=== PATIENT | male | born 1965 | race Caucasian/White ===

== ENCOUNTER 2017-05-05 12:26 | Inpatient (IN) | payer MEDICARE, MEDICAID ==
[~2017-05-05] VITALS: Ht 180.3 cm; Wt 70.0 kg
[2017-05-05] MEDS ORDERED: DiphenhydrAMINE HCL 50 MG/ML VIAL IM ONE (12:45)
[2017-05-05] MEDS ORDERED: HALOPERIDOL LACTATE 5 MG/ML VIAL IM ONE (12:45)
[2017-05-05] MEDS ORDERED: LORazepam 2 MG/ML VIAL IM ONE (12:45)
[2017-05-05 13:48] LABS: BASOPHILS % (AUTO) 0.4 % (0.0-2.0); EOSINOPHILS % (AUTO) 0.9 % (1.0-6.0); HEMATOCRIT 35.3 % (41-53); HEMOGLOBIN 12.4 g/dL (13.5-17.5); LYMPHOCYTES # (AUTO) 1.5 K/uL (1.0-4.8); LYMPHOCYTES % (AUTO) 29.2 % (22.0-44.0); MEAN CORPUSCULAR HEMOGLOBIN 30.3 pg (26.0-34.0); MEAN CORPUSCULAR HGB CONC 35.1 G/dL (31.0-37.0); MEAN CORPUSCULAR VOLUME 86 fL (80-100); MONOCYTES # (AUTO) 0.5 K/uL (0.1-1.0); MONOCYTES % (AUTO) 9.6 % (2.0-9.0); NEUTROPHILS # (AUTO) 3.2 K/uL (1.8-7.7); NEUTROPHILS % (AUTO) 59.9 % (40.0-70.0); PLATELET COUNT (AUTO) 280 K/uL (150-450); RED BLOOD CELL COUNT(AUTO) 4.08 MIL/uL (4.50-5.90); RED CELL DISTRIBUTION WIDTH 12.9 % (11.5-14.5); WHITE BLOOD COUNT (AUTO) 5.3 K/uL (4.5-11.0)
[2017-05-05 14:10] LABS: ALANINE AMINOTRANSFERASE 179 U/L (12-78); ALBUMIN 3.1 g/dL (3.4-5.0); ANION GAP 13 mmol/L (8-16); ASPARTATE AMINOTRANSFERASE 81 U/L (15-37); BILIRUBIN,TOTAL 0.7 mg/dL (0.1-1.0); CALCIUM, TOTAL 8.4 mg/dL (8.8-10.5); CARBON DIOXIDE 21 mmol/L (22-29); CHLORIDE 97 mmol/L (98-107); CREATININE 1.29 mg/dL (0.60-1.30); GLOMERULAR FILTR. RATE CALC 58 mL/min (>60); SODIUM SERUM 131 mmol/L (136-145); UREA NITROGEN, BLOOD 19 mg/dL (7-18)
[2017-05-05] MEDS ORDERED: SODIUM CHLORIDE 0.9% 1,000 ML IV ONE (14:30)
[2017-05-05] MEDS ORDERED: INSULIN REGULAR, HUMAN 100 UNITS/ML IVP ONE (14:30)
[2017-05-05 15:02] LABS: GLUCOSE,POINT OF CARE 330 MG/DL (70-110)
[2017-05-05 15:21] LABS: GLUCOSE,POINT OF CARE 228 MG/DL (70-110)
[2017-05-05 16:17] LABS: GLUCOSE,POINT OF CARE 219 MG/DL (70-110)
[2017-05-05] MEDS ORDERED: LORazepam 2 MG TABLET PO PRN (19:15)
[2017-05-05] MEDS ORDERED: ZOLPIDEM TARTRATE 10 MG TABLET PO PRN (19:15)
[2017-05-05] MEDS ORDERED: HALOPERIDOL 5 MG TABLET PO PRN (19:15)
[2017-05-05 19:25] VITALS: BP 119/79
[2017-05-05] MEDS ORDERED: PNEUMOCOCCAL VACCINE POLYVALENT 0.5 ML VIAL [PPSV23] IM ONE (19:30)
[2017-05-05] MEDS: INSULIN ASPART 100 UNITS/ML SQ PRN (19:56)
[2017-05-05] MEDS ORDERED: GLUCAGON,HUMAN RECOMBINANT 1 MG VIAL IM PRN (20:00)
[2017-05-05 20:22] LABS: GLUCOSE,POINT OF CARE 209 MG/DL (70-110)
[2017-05-06 05:32] VITALS: BP 123/80
[2017-05-06 06:17] LABS: GLUCOSE,POINT OF CARE 173 MG/DL (70-110)
[2017-05-06] MEDS: INSULIN ASPART 100 UNITS/ML SQ PRN ×4 (06:36→21:55)
[2017-05-06 07:57] LABS: BASOPHILS % (AUTO) 0.7 % (0.0-2.0); EOSINOPHILS % (AUTO) 4.6 % (1.0-6.0); HEMATOCRIT 36.5 % (41-53); HEMOGLOBIN 12.6 g/dL (13.5-17.5); LYMPHOCYTES # (AUTO) 2.4 K/uL (1.0-4.8); MEAN CORPUSCULAR HEMOGLOBIN 30.4 pg (26.0-34.0); MEAN CORPUSCULAR HGB CONC 34.4 G/dL (31.0-37.0); MEAN CORPUSCULAR VOLUME 88 fL (80-100); MONOCYTES # (AUTO) 0.6 K/uL (0.1-1.0); MONOCYTES % (AUTO) 11.3 % (2.0-9.0); NEUTROPHILS # (AUTO) 2.1 K/uL (1.8-7.7); NEUTROPHILS % (AUTO) 39.4 % (40.0-70.0); PLATELET COUNT (AUTO) 262 K/uL (150-450); RED BLOOD CELL COUNT(AUTO) 4.12 MIL/uL (4.50-5.90); WHITE BLOOD COUNT (AUTO) 5.4 K/uL (4.5-11.0)
[2017-05-06 08:03] VITALS: BP 111/68
[2017-05-06 08:09] LABS: ALANINE AMINOTRANSFERASE 148 U/L (12-78); ALBUMIN 2.7 g/dL (3.4-5.0); ANION GAP 9 mmol/L (8-16); ASPARTATE AMINOTRANSFERASE 81 U/L (15-37); BILIRUBIN,TOTAL 0.6 mg/dL (0.1-1.0); CALCIUM, TOTAL 8.2 mg/dL (8.8-10.5); CARBON DIOXIDE 26 mmol/L (22-29); CHLORIDE 104 mmol/L (98-107); CHOL/HDL RATIO 3.4 (4.2-7.3); CREATININE 1.02 mg/dL (0.60-1.30); GLOMERULAR FILTR. RATE CALC > 60 mL/min (>60); POTASSIUM 3.8 mmol/L (3.5-5.1); SODIUM SERUM 139 mmol/L (136-145); UREA NITROGEN, BLOOD 14 mg/dL (7-18)
[2017-05-06] MEDS ORDERED: ACETAMINOPHEN 325 MG TABLET PO PRN (09:15)
[2017-05-06] MEDS ORDERED: ALBUTEROL SULFATE HFA 90 MCG/PUFF 8 GM INHALER IH PRN (09:15)
[2017-05-06] MEDS ORDERED: PETROLATUM,WHITE 71 GM JELLY TP PRN (09:15)
[2017-05-06] MEDS ORDERED: LOPERAMIDE HCL 2 MG CAPSULE PO PRN (09:15)
[2017-05-06] MEDS ORDERED: IBUPROFEN 600 MG TABLET PO PRN (09:15)
[2017-05-06] MEDS ORDERED: ONDANSETRON HCL 4 MG TABLET PO PRN (09:15)
[2017-05-06] MEDS ORDERED: BACITRACIN 28.4 GM OINTMENT TP PRN (09:15)
[2017-05-06] MEDS ORDERED: BENZOCAINE/MENTHOL LOZENGE MM PRN (09:15)
[2017-05-06] MEDS ORDERED: MAGNESIUM HYDROXIDE SUSPENSION 30 ML UDCUP PO PRN (09:15)
[2017-05-06] MEDS ORDERED: CloNIDine HCL 0.1 MG TABLET PO PRN (09:15)
[2017-05-06] MEDS ORDERED: MAG HYDROX/AL HYDROX/SIMETH ES 30 ML SUSPENSION UDCUP PO PRN (09:15)
[2017-05-06 11:42] LABS: GLUCOSE,POINT OF CARE 349 MG/DL (70-110)
[2017-05-06 16:00] VITALS: BP 116/67
[2017-05-06 16:47] LABS: GLUCOSE COMMENT 1 Received Meds; GLUCOSE,POINT OF CARE 266 MG/DL (70-110)
[2017-05-06] MEDS: RisperiDONE 1 MG TABLET PO SCH (16:52)
[2017-05-06] MEDS: MetFORMIN HCL 500 MG TABLET PO SCH (16:52)
[2017-05-06 21:57] LABS: GLUCOSE COMMENT 1 Received Meds; GLUCOSE,POINT OF CARE 181 MG/DL (70-110)
[2017-05-07 05:17] VITALS: BP 118/78
[2017-05-07] MEDS: MetFORMIN HCL 500 MG TABLET PO SCH ×2 (06:30→16:49)
[2017-05-07 06:32] LABS: GLUCOSE,POINT OF CARE 132 MG/DL (70-110)
[2017-05-07 08:20] LABS: HEMOGLOBIN A1C 11.7 % (4.5-6.2)
[2017-05-07] MEDS: RisperiDONE 1 MG TABLET PO SCH ×2 (09:04→16:49)
[2017-05-07 10:05] LABS: THYROID STIMULATING HORMONE 1.88 uIU/mL (0.36-3.74)
[2017-05-07 11:37] LABS: GLUCOSE,POINT OF CARE 330 MG/DL (70-110)
[2017-05-07] MEDS: INSULIN ASPART 100 UNITS/ML SQ PRN ×3 (11:44→21:44)
[2017-05-07 12:04] VITALS: BP 106/58
[2017-05-07 16:00] VITALS: BP 119/71
[2017-05-07 16:43] LABS: GLUCOSE COMMENT 1 Received Meds; GLUCOSE,POINT OF CARE 324 MG/DL (70-110)
[2017-05-07 21:42] LABS: GLUCOSE COMMENT 1 Received Meds; GLUCOSE,POINT OF CARE 215 MG/DL (70-110)
[2017-05-08 06:05] VITALS: BP 99/64
[2017-05-08 06:32] LABS: GLUCOSE,POINT OF CARE 232 MG/DL (70-110)
[2017-05-08] MEDS: MetFORMIN HCL 500 MG TABLET PO SCH ×2 (07:00→16:51)
[2017-05-08] MEDS: INSULIN ASPART 100 UNITS/ML SQ PRN ×4 (07:03→20:59)
[2017-05-08 08:01] VITALS: BP 113/74
[2017-05-08] MEDS: RisperiDONE 1 MG TABLET PO SCH ×2 (08:57→16:51)
[2017-05-08 12:52] LABS: GLUCOSE,POINT OF CARE 333 MG/DL (70-110)
[2017-05-08 16:00] VITALS: BP 120/69
[2017-05-08 17:42] LABS: GLUCOSE COMMENT 1 Received Meds; GLUCOSE,POINT OF CARE 252 MG/DL (70-110)
[2017-05-08 21:22] LABS: GLUCOSE COMMENT 1 Received Meds; GLUCOSE,POINT OF CARE 289 MG/DL (70-110)
[2017-05-09 06:10] VITALS: BP 109/68
[2017-05-09 06:19] LABS: HEPATITIS Bs ANTIGEN SCREEN P Negative (Negative); HEPATITIS C AB SCREEN 0.1 s/co ratio (0.0-0.9)
[2017-05-09] MEDS: MetFORMIN HCL 500 MG TABLET PO SCH (06:35)
[2017-05-09 06:42] LABS: GLUCOSE,POINT OF CARE 252 MG/DL (70-110)
[2017-05-09] MEDS: INSULIN ASPART 100 UNITS/ML SQ PRN ×2 (06:44→11:42)
[2017-05-09] MEDS: RisperiDONE 1 MG TABLET PO SCH (08:49)
[2017-05-09] MEDS ORDERED: METF500T4 PO (10:36)
[2017-05-09] MEDS ORDERED: RISP1 PO (10:36)
[2017-05-09 11:42] LABS: GLUCOSE,POINT OF CARE 260 MG/DL (70-110)
== END 2017-05-09 13:21 | disposition home or self-care (01) | DRG 897 ==
LOC: EMS 12:29 → EEVIPCON 12:29 → B3A 17:39
DX: F19.959 Other psychoactive substance use, unspecified with psychoactive substance-induced psychotic disorder, unspecified (principal); R44.2 Other hallucinations; F20.0 Paranoid schizophrenia; E11.65 Type 2 diabetes mellitus with hyperglycemia; I10 Essential (primary) hypertension; F41.9 Anxiety disorder, unspecified; J44.9 Chronic obstructive pulmonary disease, unspecified; G47.00 Insomnia, unspecified; R74.0 Nonspecific elevation of levels of transaminase and lactic acid dehydrogenase [LDH]; E83.51 Hypocalcemia; F17.200 Nicotine dependence, unspecified, uncomplicated; F10.10 Alcohol abuse, uncomplicated; Y90.9 Presence of alcohol in blood, level not specified; Z88.8 Allergy status to other drugs, medicaments and biological substances; Z71.41 Alcohol abuse counseling and surveillance of alcoholic; Z71.6 Tobacco abuse counseling; F15.90 Other stimulant use, unspecified, uncomplicated
CPT/HCPCS: 80074; 82306; 82962; 83036; 84443; 90471; 96361; 96372; 96374; 99285; G0480; J1200; J1630; J1815; J2060; J7030

== ENCOUNTER → 2019-06-17 | Outpatient (CLI) | payer MEDICARE, MEDICAID ==
[~2019-06-17] VITALS: Ht 182.9 cm; Wt 99.0 kg
[~2019-06-17] MED LIST: METF-960 PO; RISP1 PO
[2019-06-17 12:12] VITALS: BP 124/79
== END | disposition home or self-care (01) ==
LOC: HBOWC 11:01
PROVIDERS: ATTEND Internal Medicine
DX: L03.011 Cellulitis of right finger (principal); B35.1 Tinea unguium; E11.65 Type 2 diabetes mellitus with hyperglycemia; I10 Essential (primary) hypertension; G47.30 Sleep apnea, unspecified; J44.9 Chronic obstructive pulmonary disease, unspecified; F41.9 Anxiety disorder, unspecified; F20.0 Paranoid schizophrenia; F17.200 Nicotine dependence, unspecified, uncomplicated; F10.10 Alcohol abuse, uncomplicated

== ENCOUNTER 2019-12-30 18:34 | Inpatient (IN) | payer MEDICARE, MEDICAID ==
[~2019-12-30] VITALS: Ht 182.9 cm; Wt 77.8 kg
[2019-12-30] MEDS ORDERED: TRAZ-252 PO (19:05)
[2019-12-30] MEDS ORDERED: butrans patch TD (19:05)
[2019-12-30] MEDS ORDERED: DULA0.75 SQ (19:05)
[2019-12-30] MEDS ORDERED: DIVA250T45 PO (19:05)
[2019-12-30] MEDS ORDERED: ASPI-728 PO (19:05)
[2019-12-30] MEDS ORDERED: CITA10TA68 PO (19:05)
[2019-12-30] MEDS ORDERED: ATOR20TA86 PO (19:05)
[2019-12-30] MEDS ORDERED: LISI-661 PO (19:05)
[2019-12-30] MEDS ORDERED: GABA-533 PO (19:05)
[2019-12-30] MEDS ORDERED: MUPI15CR12 TP (19:05)
[2019-12-30] MEDS ORDERED: ALBU8.5H8 IH (19:05)
[2019-12-30 22:26] LABS: BASOPHILS % (AUTO) 0.6 % (0.0-2.0); EOSINOPHILS % (AUTO) 2.9 % (1.0-6.0); HEMATOCRIT 39.9 % (41-53); HEMOGLOBIN 13.5 g/dL (13.5-17.5); LYMPHOCYTES # (AUTO) 2.3 K/uL (1.0-4.8); LYMPHOCYTES % (AUTO) 29.6 % (22.0-44.0); MEAN CORPUSCULAR HEMOGLOBIN 29.8 pg (26.0-34.0); MEAN CORPUSCULAR HGB CONC 33.8 G/dL (31.0-37.0); MEAN CORPUSCULAR VOLUME 88 fL (80-100); MONOCYTES # (AUTO) 0.7 K/uL (0.1-1.0); MONOCYTES % (AUTO) 9.1 % (2.0-9.0); NEUTROPHILS # (AUTO) 4.4 K/uL (1.8-7.7); NEUTROPHILS % (AUTO) 57.8 % (40.0-70.0); PLATELET COUNT (AUTO) 250 K/uL (150-450); RED BLOOD CELL COUNT(AUTO) 4.53 MIL/uL (4.50-5.90); RED CELL DISTRIBUTION WIDTH 12.8 % (11.5-14.5)
[2019-12-30 22:36] LABS: ANION GAP 13 mmol/L (8-16); CALCIUM, TOTAL 9.5 mg/dL (8.8-10.5); CARBON DIOXIDE 22 mmol/L (22-29); CHLORIDE 99 mmol/L (98-107); CREATININE 1.19 mg/dL (0.60-1.30); GLOMERULAR FILTR. RATE CALC > 60 mL/min (>60); GLUCOSE,RANDOM 302 mg/dL (70-110); POTASSIUM 4.5 mmol/L (3.5-5.1); SODIUM SERUM 134 mmol/L (136-145); UREA NITROGEN, BLOOD 27 mg/dL (7-18)
[2019-12-30 22:45] LABS: ALANINE AMINOTRANSFERASE 21 U/L (12-78); ALBUMIN 3.4 g/dL (3.4-5.0); ALKALINE PHOSPHATASE 63 U/L (46-116); ASPARTATE AMINOTRANSFERASE 15 U/L (15-37); BILIRUBIN,TOTAL 0.4 mg/dL (0.1-1.0)
[2019-12-31] MEDS ORDERED: HALOPERIDOL 5 MG TABLET PO PRN
[2019-12-31 03:27] VITALS: BP 127/70
[2019-12-31 07:13] LABS: GLUCOMETER DEV NAME(LOC) BV2X.; GLUCOSE,POINT OF CARE 346 MG/DL (70-110)
[2019-12-31] MEDS ORDERED: GLUCAGON,HUMAN RECOMBINANT 1 MG VIAL IM PRN (08:00)
[2019-12-31] MEDS ORDERED: ALBUTEROL SULFATE HFA 90 MCG/PUFF 8 GM INHALER IH PRN (08:00)
[2019-12-31 08:22] VITALS: BP 130/71
[2019-12-31 08:40] LABS: CHOL/HDL RATIO 5.4 (4.2-7.3); CHOLESTEROL 189 mg/dL (131-200); HDL CHOLESTEROL 35 mg/dL (40-60); LDL CHOL (CALC.) 102 mg/dL (0-130); TRIGLYCERIDES 261 mg/dL (15-150)
[2019-12-31] MEDS: ATORVASTATIN CALCIUM 20 MG TABLET PO SCH (09:53)
[2019-12-31] MEDS: LISINOPRIL 10 MG TABLET PO SCH (09:53)
[2019-12-31] MEDS: ASPIRIN 81 MG CHEWABLE TABLET PO SCH (09:54)
[2019-12-31 12:10] LABS: ALANINE AMINOTRANSFERASE 22 U/L (12-78); ALBUMIN 3.1 g/dL (3.4-5.0); ALKALINE PHOSPHATASE 62 U/L (46-116); ANION GAP 12 mmol/L (8-16); ASPARTATE AMINOTRANSFERASE 13 U/L (15-37); BILIRUBIN,TOTAL 0.2 mg/dL (0.1-1.0); CARBON DIOXIDE 23 mmol/L (22-29); CHLORIDE 100 mmol/L (98-107); CREATININE 1.18 mg/dL (0.60-1.30); FREE T4 (FREE THYROXINE) 1.23 ng/dL (0.76-1.46); GLOMERULAR FILTR. RATE CALC > 60 mL/min (>60); GLUCOSE,RANDOM 376 mg/dL (70-110); POTASSIUM 4.7 mmol/L (3.5-5.1); SODIUM SERUM 135 mmol/L (136-145); THYROID STIMULATING HORMONE 1.95 uIU/mL (0.36-3.74); UREA NITROGEN, BLOOD 27 mg/dL (7-18)
[2019-12-31 12:14] LABS: HEMOGLOBIN A1C 10.1 % (3.8-5.6)
[2019-12-31 16:23] VITALS: BP 109/71
[2019-12-31 16:30] LABS: GLUCOMETER DEV NAME(LOC) BV2X.; GLUCOSE,POINT OF CARE 432 MG/DL (70-110)
[2019-12-31] MEDS: MetFORMIN HCL 500 MG TABLET PO SCH (16:32)
[2019-12-31] MEDS ORDERED: INSULIN LISPRO 100 UNITS/ML SQ ONE ×3 (18:00→20:45)
[2019-12-31 19:04] LABS: GLUCOMETER DEV NAME(LOC) BV2X.; GLUCOSE,POINT OF CARE 511 MG/DL (70-110)
[2019-12-31 20:34] LABS: GLUCOMETER DEV NAME(LOC) BV2X.; GLUCOSE,POINT OF CARE 316 MG/DL (70-110)
[2019-12-31] MEDS ORDERED: TraZODone HCL 50 MG TABLET PO ONE (21:45)
[2019-12-31 22:18] LABS: GLUCOMETER DEV NAME(LOC) BV2X.; GLUCOSE,POINT OF CARE 144 MG/DL (70-110)
[2020-01-01 00:44] LABS: GLUCOMETER DEV NAME(LOC) BV2X.; GLUCOSE,POINT OF CARE 64 MG/DL (70-110)
[2020-01-01 05:48] LABS: GLUCOMETER DEV NAME(LOC) BV2X.; GLUCOSE,POINT OF CARE 211 MG/DL (70-110)
[2020-01-01] MEDS: MetFORMIN HCL 500 MG TABLET PO SCH ×2 (06:53→16:36)
[2020-01-01] MEDS: INSULIN LISPRO 100 UNITS/ML SQ PRN ×2 (07:06→11:29)
[2020-01-01 08:34] VITALS: BP 109/66
[2020-01-01] MEDS: DIVALPROEX SODIUM 500 MG ER TABLET PO SCH ×2 (09:15→16:36)
[2020-01-01] MEDS: RisperiDONE 1 MG TABLET PO SCH ×2 (09:16→16:36)
[2020-01-01] MEDS: ASPIRIN 81 MG CHEWABLE TABLET PO SCH (09:16)
[2020-01-01] MEDS: ATORVASTATIN CALCIUM 20 MG TABLET PO SCH (09:16)
[2020-01-01] MEDS: CITALOPRAM HYDROBROMIDE 20 MG TABLET PO SCH (09:17)
[2020-01-01] MEDS: LISINOPRIL 10 MG TABLET PO SCH (09:17)
[2020-01-01] MEDS: GABAPENTIN 400 MG CAPSULE PO SCH ×3 (09:17→16:36)
[2020-01-01 16:36] VITALS: BP 128/74
[2020-01-01 17:18] LABS: GLUCOMETER DEV NAME(LOC) BV2X.; GLUCOSE,POINT OF CARE 426 MG/DL (70-110)
[2020-01-01] MEDS ORDERED: INSULIN LISPRO 100 UNITS/ML SQ ONE ×2 (18:15→21:00)
[2020-01-01] MEDS ORDERED: CITA-106 PO (18:18)
[2020-01-01] MEDS ORDERED: BUPR1PAT3 TD (18:18)
[2020-01-01] MEDS ORDERED: DIVA500T52 PO (18:18)
[2020-01-01] MEDS: TraZODone HCL 50 MG TABLET PO SCH (20:19)
[2020-01-01 20:40] LABS: GLUCOMETER DEV NAME(LOC) BV2X.; GLUCOSE,POINT OF CARE 428 MG/DL (70-110)
[2020-01-01 23:05] LABS: GLUCOMETER DEV NAME(LOC) BV2X.; GLUCOSE,POINT OF CARE 253 MG/DL (70-110)
[2020-01-02] VITALS (9 sets, daily range): BP systolic 74–132; BP diastolic 36–88
[2020-01-02 05:47] LABS: GLUCOMETER DEV NAME(LOC) BV2X.; GLUCOSE,POINT OF CARE 171 MG/DL (70-110)
[2020-01-02] MEDS: MetFORMIN HCL 500 MG TABLET PO SCH ×2 (06:23→16:33)
[2020-01-02] MEDS: INSULIN GLARGINE,HUM.REC.ANLOG 100 UNITS/ML SQ SCH ×2 (06:29→20:46)
[2020-01-02] MEDS: INSULIN LISPRO 100 UNITS/ML SQ PRN ×4 (06:30→20:46)
[2020-01-02] MEDS: DIVALPROEX SODIUM 500 MG ER TABLET PO SCH ×2 (08:33→16:33)
[2020-01-02] MEDS: GABAPENTIN 400 MG CAPSULE PO SCH ×3 (08:33→16:33)
[2020-01-02] MEDS: CITALOPRAM HYDROBROMIDE 20 MG TABLET PO SCH (08:33)
[2020-01-02] MEDS: RisperiDONE 1 MG TABLET PO SCH ×2 (08:33→16:33)
[2020-01-02] MEDS: ASPIRIN 81 MG CHEWABLE TABLET PO SCH (08:33)
[2020-01-02] MEDS: LISINOPRIL 10 MG TABLET PO SCH (08:33)
[2020-01-02] MEDS: ATORVASTATIN CALCIUM 20 MG TABLET PO SCH (08:33)
[2020-01-02 11:39] LABS: GLUCOMETER DEV NAME(LOC) BV2X.; GLUCOSE,POINT OF CARE 396 MG/DL (70-110)
[2020-01-02 16:38] LABS: GLUCOMETER DEV NAME(LOC) BV2X.; GLUCOSE,POINT OF CARE 270 MG/DL (70-110)
[2020-01-02 20:27] LABS: GLUCOMETER DEV NAME(LOC) BV2X.; GLUCOSE,POINT OF CARE 233 MG/DL (70-110)
[2020-01-02] MEDS: TraZODone HCL 50 MG TABLET PO SCH (20:35)
[2020-01-03 00:08] VITALS: BP 117/68
[2020-01-03] MEDS: MetFORMIN HCL 500 MG TABLET PO SCH ×2 (06:45→16:37)
[2020-01-03 06:47] LABS: GLUCOMETER DEV NAME(LOC) BV2X.; GLUCOSE,POINT OF CARE 327 MG/DL (70-110)
[2020-01-03] MEDS: INSULIN LISPRO 100 UNITS/ML SQ PRN ×4 (06:47→20:54)
[2020-01-03] MEDS: LISINOPRIL 10 MG TABLET PO SCH (09:00)
[2020-01-03 09:23] VITALS: BP 109/65
[2020-01-03] MEDS: RisperiDONE 1 MG TABLET PO SCH ×2 (10:00→16:37)
[2020-01-03] MEDS: DIVALPROEX SODIUM 500 MG ER TABLET PO SCH ×2 (10:00→16:37)
[2020-01-03] MEDS: ASPIRIN 81 MG CHEWABLE TABLET PO SCH (10:00)
[2020-01-03] MEDS: CITALOPRAM HYDROBROMIDE 20 MG TABLET PO SCH (10:00)
[2020-01-03] MEDS: ATORVASTATIN CALCIUM 20 MG TABLET PO SCH (10:00)
[2020-01-03] MEDS: GABAPENTIN 400 MG CAPSULE PO SCH ×3 (10:00→16:37)
[2020-01-03 10:20] LABS: GLUCOMETER DEV NAME(LOC) BV2X.; GLUCOSE,POINT OF CARE 334 MG/DL (70-110)
[2020-01-03] MEDS: INSULIN GLARGINE,HUM.REC.ANLOG 100 UNITS/ML SQ SCH ×2 (10:22→20:54)
[2020-01-03 11:47] LABS: GLUCOMETER DEV NAME(LOC) BV2X.; GLUCOSE,POINT OF CARE 351 MG/DL (70-110)
[2020-01-03 16:04] VITALS: BP 104/63
[2020-01-03 16:41] LABS: GLUCOMETER DEV NAME(LOC) BV2X.; GLUCOSE,POINT OF CARE 258 MG/DL (70-110)
[2020-01-03] MEDS: TraZODone HCL 50 MG TABLET PO SCH (20:29)
[2020-01-03 20:35] LABS: GLUCOMETER DEV NAME(LOC) BV2X.; GLUCOSE,POINT OF CARE 261 MG/DL (70-110)
[2020-01-04 01:42] VITALS: BP 98/58
[2020-01-04 06:18] LABS: GLUCOMETER DEV NAME(LOC) BV2X.; GLUCOSE,POINT OF CARE 231 MG/DL (70-110)
[2020-01-04] MEDS: MetFORMIN HCL 500 MG TABLET PO SCH ×2 (06:43→16:53)
[2020-01-04] MEDS: INSULIN LISPRO 100 UNITS/ML SQ PRN ×4 (06:45→20:57)
[2020-01-04 08:04] VITALS: BP 113/65
[2020-01-04] MEDS: RisperiDONE 1 MG TABLET PO SCH ×2 (09:08→16:53)
[2020-01-04] MEDS: LISINOPRIL 10 MG TABLET PO SCH (09:08)
[2020-01-04] MEDS: DIVALPROEX SODIUM 500 MG ER TABLET PO SCH ×2 (09:08→16:53)
[2020-01-04] MEDS: ATORVASTATIN CALCIUM 20 MG TABLET PO SCH (09:08)
[2020-01-04] MEDS: GABAPENTIN 400 MG CAPSULE PO SCH ×3 (09:09→16:53)
[2020-01-04] MEDS: CITALOPRAM HYDROBROMIDE 20 MG TABLET PO SCH (09:09)
[2020-01-04] MEDS: ASPIRIN 81 MG CHEWABLE TABLET PO SCH (09:09)
[2020-01-04] MEDS: INSULIN GLARGINE,HUM.REC.ANLOG 100 UNITS/ML SQ SCH ×2 (09:35→20:57)
[2020-01-04 11:41] LABS: GLUCOMETER DEV NAME(LOC) BV2X.; GLUCOSE,POINT OF CARE 245 MG/DL (70-110)
[2020-01-04 16:18] VITALS: BP 118/74
[2020-01-04 17:01] LABS: GLUCOMETER DEV NAME(LOC) BV2X.; GLUCOSE,POINT OF CARE 236 MG/DL (70-110)
[2020-01-04] MEDS: TraZODone HCL 50 MG TABLET PO SCH (20:49)
[2020-01-04 20:58] LABS: GLUCOMETER DEV NAME(LOC) BV2X.; GLUCOSE,POINT OF CARE 217 MG/DL (70-110)
[2020-01-05 00:30] VITALS: BP 101/59
[2020-01-05] MEDS: LORazepam 2 MG TABLET PO PRN (02:56)
[2020-01-05] MEDS: ZOLPIDEM TARTRATE 10 MG TABLET PO PRN (02:56)
[2020-01-05 06:15] LABS: GLUCOMETER DEV NAME(LOC) BV2X.; GLUCOSE,POINT OF CARE 153 MG/DL (70-110)
[2020-01-05] MEDS: MetFORMIN HCL 500 MG TABLET PO SCH ×2 (06:53→16:21)
[2020-01-05] MEDS: INSULIN LISPRO 100 UNITS/ML SQ PRN ×3 (07:04→20:44)
[2020-01-05] MEDS: ATORVASTATIN CALCIUM 20 MG TABLET PO SCH (08:59)
[2020-01-05] MEDS: LISINOPRIL 10 MG TABLET PO SCH (08:59)
[2020-01-05] MEDS: GABAPENTIN 400 MG CAPSULE PO SCH ×3 (08:59→16:22)
[2020-01-05] MEDS: RisperiDONE 1 MG TABLET PO SCH ×2 (08:59→16:21)
[2020-01-05] MEDS: DIVALPROEX SODIUM 500 MG ER TABLET PO SCH ×3 (09:00→16:25)
[2020-01-05] MEDS: CITALOPRAM HYDROBROMIDE 20 MG TABLET PO SCH (09:00)
[2020-01-05] MEDS: ASPIRIN 81 MG CHEWABLE TABLET PO SCH (09:00)
[2020-01-05] MEDS: OMEGA-3/DHA/EPA/FISH OIL 1,000 MG CAPSULE PO SCH (09:00)
[2020-01-05] MEDS: INSULIN GLARGINE,HUM.REC.ANLOG 100 UNITS/ML SQ SCH ×2 (09:15→20:44)
[2020-01-05 11:19] LABS: GLUCOMETER DEV NAME(LOC) BV2X.; GLUCOSE,POINT OF CARE 117 MG/DL (70-110)
[2020-01-05 16:16] VITALS: BP 107/60
[2020-01-05 16:37] LABS: GLUCOMETER DEV NAME(LOC) BV2X.; GLUCOSE,POINT OF CARE 155 MG/DL (70-110)
[2020-01-05 20:41] LABS: GLUCOMETER DEV NAME(LOC) BV2X.; GLUCOSE,POINT OF CARE 214 MG/DL (70-110)
[2020-01-05] MEDS: TraZODone HCL 50 MG TABLET PO SCH (20:41)
[2020-01-06 02:31] VITALS: BP 111/63
[2020-01-06] MEDS: ZOLPIDEM TARTRATE 10 MG TABLET PO PRN (02:39)
[2020-01-06] MEDS: MetFORMIN HCL 500 MG TABLET PO SCH ×2 (06:12→16:34)
[2020-01-06] MEDS: INSULIN LISPRO 100 UNITS/ML SQ PRN ×4 (06:19→20:48)
[2020-01-06 06:32] LABS: GLUCOMETER DEV NAME(LOC) BV2X.; GLUCOSE,POINT OF CARE 121 MG/DL (70-110)
[2020-01-06 08:23] VITALS: BP 108/66
[2020-01-06] MEDS: GABAPENTIN 400 MG CAPSULE PO SCH ×3 (08:53→16:34)
[2020-01-06] MEDS: CITALOPRAM HYDROBROMIDE 20 MG TABLET PO SCH (08:53)
[2020-01-06] MEDS: ASPIRIN 81 MG CHEWABLE TABLET PO SCH (08:53)
[2020-01-06] MEDS: ATORVASTATIN CALCIUM 20 MG TABLET PO SCH (08:53)
[2020-01-06] MEDS: LISINOPRIL 10 MG TABLET PO SCH (08:53)
[2020-01-06] MEDS: RisperiDONE 1 MG TABLET PO SCH ×2 (08:53→16:34)
[2020-01-06] MEDS: DIVALPROEX SODIUM 500 MG ER TABLET PO SCH ×2 (08:53→16:33)
[2020-01-06] MEDS: INSULIN GLARGINE,HUM.REC.ANLOG 100 UNITS/ML SQ SCH ×2 (09:04→20:48)
[2020-01-06] MEDS: OMEGA-3/DHA/EPA/FISH OIL 1,000 MG CAPSULE PO SCH (09:05)
[2020-01-06 11:22] LABS: GLUCOMETER DEV NAME(LOC) BV2X.; GLUCOSE,POINT OF CARE 183 MG/DL (70-110)
[2020-01-06 16:25] VITALS: BP 108/63
[2020-01-06 16:33] LABS: GLUCOMETER DEV NAME(LOC) BV2X.; GLUCOSE,POINT OF CARE 263 MG/DL (70-110)
[2020-01-06] MEDS: TraZODone HCL 50 MG TABLET PO SCH (20:30)
[2020-01-06 20:57] LABS: GLUCOMETER DEV NAME(LOC) BV2X.; GLUCOSE,POINT OF CARE 146 MG/DL (70-110)
[2020-01-07 00:24] VITALS: BP 101/65
[2020-01-07] MEDS: ZOLPIDEM TARTRATE 10 MG TABLET PO PRN (01:02)
[2020-01-07 06:45] LABS: GLUCOMETER DEV NAME(LOC) BV2X.; GLUCOSE,POINT OF CARE 145 MG/DL (70-110)
[2020-01-07] MEDS: MetFORMIN HCL 500 MG TABLET PO SCH ×2 (06:46→16:42)
[2020-01-07] MEDS: LORazepam 2 MG TABLET PO PRN (06:46)
[2020-01-07 06:48] VITALS: BP 105/58
[2020-01-07] MEDS: INSULIN LISPRO 100 UNITS/ML SQ PRN ×4 (07:07→20:37)
[2020-01-07 08:06] VITALS: BP 111/73
[2020-01-07] MEDS: OMEGA-3/DHA/EPA/FISH OIL 1,000 MG CAPSULE PO SCH (08:40)
[2020-01-07] MEDS: DIVALPROEX SODIUM 500 MG ER TABLET PO SCH ×2 (08:40→16:42)
[2020-01-07] MEDS: ATORVASTATIN CALCIUM 20 MG TABLET PO SCH (08:41)
[2020-01-07] MEDS: RisperiDONE 1 MG TABLET PO SCH ×2 (08:41→16:42)
[2020-01-07] MEDS: CITALOPRAM HYDROBROMIDE 20 MG TABLET PO SCH (08:41)
[2020-01-07] MEDS: LISINOPRIL 10 MG TABLET PO SCH (08:41)
[2020-01-07] MEDS: ASPIRIN 81 MG CHEWABLE TABLET PO SCH (08:41)
[2020-01-07] MEDS: GABAPENTIN 400 MG CAPSULE PO SCH ×3 (08:41→16:43)
[2020-01-07] MEDS: INSULIN GLARGINE,HUM.REC.ANLOG 100 UNITS/ML SQ SCH ×2 (08:56→20:36)
[2020-01-07 10:59] LABS: GLUCOMETER DEV NAME(LOC) BV2X.; GLUCOSE,POINT OF CARE 188 MG/DL (70-110)
[2020-01-07 16:37] VITALS: BP 102/61
[2020-01-07 16:53] LABS: GLUCOMETER DEV NAME(LOC) BV2X.; GLUCOSE,POINT OF CARE 170 MG/DL (70-110)
[2020-01-07] MEDS: LOPERAMIDE HCL 2 MG CAPSULE PO PRN (19:26)
[2020-01-07] MEDS: TraZODone HCL 50 MG TABLET PO SCH (20:32)
[2020-01-07 20:34] LABS: GLUCOMETER DEV NAME(LOC) BV2X.; GLUCOSE,POINT OF CARE 230 MG/DL (70-110)
[2020-01-08 00:29] VITALS: BP 129/77
[2020-01-08] MEDS: LOPERAMIDE HCL 2 MG CAPSULE PO PRN ×3 (04:21→20:36)
[2020-01-08 05:33] LABS: GLUCOMETER DEV NAME(LOC) BV2X.; GLUCOSE,POINT OF CARE 139 MG/DL (70-110)
[2020-01-08] MEDS: INSULIN LISPRO 100 UNITS/ML SQ PRN ×4 (07:10→21:13)
[2020-01-08] MEDS: MetFORMIN HCL 500 MG TABLET PO SCH ×2 (07:12→16:40)
[2020-01-08 08:08] VITALS: BP 119/75
[2020-01-08] MEDS: CITALOPRAM HYDROBROMIDE 20 MG TABLET PO SCH (09:20)
[2020-01-08] MEDS: DIVALPROEX SODIUM 500 MG ER TABLET PO SCH ×2 (09:20→16:40)
[2020-01-08] MEDS: LISINOPRIL 10 MG TABLET PO SCH (09:21)
[2020-01-08] MEDS: ATORVASTATIN CALCIUM 20 MG TABLET PO SCH (09:21)
[2020-01-08] MEDS: RisperiDONE 1 MG TABLET PO SCH ×2 (09:21→16:40)
[2020-01-08] MEDS: ASPIRIN 81 MG CHEWABLE TABLET PO SCH (09:21)
[2020-01-08] MEDS: OMEGA-3/DHA/EPA/FISH OIL 1,000 MG CAPSULE PO SCH (09:21)
[2020-01-08] MEDS: GABAPENTIN 400 MG CAPSULE PO SCH ×3 (09:21→16:40)
[2020-01-08] MEDS: INSULIN GLARGINE,HUM.REC.ANLOG 100 UNITS/ML SQ SCH ×2 (10:36→21:14)
[2020-01-08 11:44] LABS: GLUCOMETER DEV NAME(LOC) BV2X.; GLUCOSE,POINT OF CARE 184 MG/DL (70-110)
[2020-01-08 16:18] VITALS: BP 116/68
[2020-01-08 16:59] LABS: GLUCOMETER DEV NAME(LOC) BV2X.; GLUCOSE,POINT OF CARE 134 MG/DL (70-110)
[2020-01-08] MEDS: TraZODone HCL 50 MG TABLET PO SCH (20:36)
[2020-01-08 20:46] LABS: GLUCOMETER DEV NAME(LOC) BV2X.; GLUCOSE,POINT OF CARE 190 MG/DL (70-110)
[2020-01-09 00:35] VITALS: BP 108/54
[2020-01-09] MEDS: MetFORMIN HCL 500 MG TABLET PO SCH ×2 (07:06→17:20)
[2020-01-09 07:14] LABS: GLUCOMETER DEV NAME(LOC) BV2X.; GLUCOSE,POINT OF CARE 71 MG/DL (70-110)
[2020-01-09 07:14] LABS: GLUCOMETER DEV NAME(LOC) BV2X.; GLUCOSE,POINT OF CARE 50 MG/DL (70-110)
[2020-01-09 07:14] LABS: GLUCOMETER DEV NAME(LOC) BV2X.; GLUCOSE,POINT OF CARE 63 MG/DL (70-110)
[2020-01-09 08:45] VITALS: BP 128/75
[2020-01-09 08:47] VITALS: BP 107/55
[2020-01-09] MEDS: DIVALPROEX SODIUM 500 MG ER TABLET PO SCH ×2 (08:47→17:20)
[2020-01-09] MEDS: CITALOPRAM HYDROBROMIDE 20 MG TABLET PO SCH (08:48)
[2020-01-09] MEDS: RisperiDONE 1 MG TABLET PO SCH ×2 (08:48→17:20)
[2020-01-09] MEDS: GABAPENTIN 400 MG CAPSULE PO SCH ×3 (08:48→17:20)
[2020-01-09] MEDS: ATORVASTATIN CALCIUM 20 MG TABLET PO SCH (08:48)
[2020-01-09] MEDS: OMEGA-3/DHA/EPA/FISH OIL 1,000 MG CAPSULE PO SCH (08:48)
[2020-01-09] MEDS: ASPIRIN 81 MG CHEWABLE TABLET PO SCH (08:48)
[2020-01-09] MEDS: LISINOPRIL 10 MG TABLET PO SCH (08:48)
[2020-01-09] MEDS: INSULIN GLARGINE,HUM.REC.ANLOG 100 UNITS/ML SQ SCH ×2 (09:55→20:53)
[2020-01-09 10:02] LABS: GLUCOMETER DEV NAME(LOC) BV2X.; GLUCOSE,POINT OF CARE 259 MG/DL (70-110)
[2020-01-09 11:17] LABS: GLUCOMETER DEV NAME(LOC) BV2X.; GLUCOSE,POINT OF CARE 259 MG/DL (70-110)
[2020-01-09] MEDS: INSULIN LISPRO 100 UNITS/ML SQ PRN ×3 (11:47→20:52)
[2020-01-09] MEDS: LORazepam 2 MG TABLET PO PRN (13:20)
[2020-01-09 16:05] VITALS: BP 112/70
[2020-01-09 16:44] LABS: GLUCOMETER DEV NAME(LOC) BV2X.; GLUCOSE,POINT OF CARE 171 MG/DL (70-110)
[2020-01-09 20:48] LABS: GLUCOMETER DEV NAME(LOC) BV2X.; GLUCOSE,POINT OF CARE 150 MG/DL (70-110)
[2020-01-09] MEDS: TraZODone HCL 50 MG TABLET PO SCH (21:00)
[2020-01-10 04:19] VITALS: BP 110/67
[2020-01-10] MEDS: LORazepam 2 MG TABLET PO PRN (04:23)
[2020-01-10] MEDS: MetFORMIN HCL 500 MG TABLET PO SCH ×2 (06:57→16:52)
[2020-01-10 07:01] LABS: GLUCOMETER DEV NAME(LOC) BV2X.; GLUCOSE,POINT OF CARE 162 MG/DL (70-110)
[2020-01-10] MEDS: INSULIN LISPRO 100 UNITS/ML SQ PRN ×3 (07:06→20:58)
[2020-01-10 08:11] VITALS: BP 112/75
[2020-01-10] MEDS: ASPIRIN 81 MG CHEWABLE TABLET PO SCH (09:11)
[2020-01-10] MEDS: GABAPENTIN 400 MG CAPSULE PO SCH ×3 (09:11→16:12)
[2020-01-10] MEDS: DIVALPROEX SODIUM 500 MG ER TABLET PO SCH ×2 (09:12→16:12)
[2020-01-10] MEDS: CITALOPRAM HYDROBROMIDE 20 MG TABLET PO SCH (09:12)
[2020-01-10] MEDS: ATORVASTATIN CALCIUM 20 MG TABLET PO SCH (09:12)
[2020-01-10] MEDS: RisperiDONE 1 MG TABLET PO SCH ×2 (09:12→16:12)
[2020-01-10] MEDS: OMEGA-3/DHA/EPA/FISH OIL 1,000 MG CAPSULE PO SCH (09:12)
[2020-01-10] MEDS: LISINOPRIL 10 MG TABLET PO SCH (09:12)
[2020-01-10] MEDS: INSULIN GLARGINE,HUM.REC.ANLOG 100 UNITS/ML SQ SCH ×2 (09:18→20:59)
[2020-01-10 09:51] LABS: GLUCOMETER DEV NAME(LOC) BV2X.; GLUCOSE,POINT OF CARE 208 MG/DL (70-110)
[2020-01-10 11:43] LABS: GLUCOMETER DEV NAME(LOC) BV2X.; GLUCOSE,POINT OF CARE 93 MG/DL (70-110)
[2020-01-10 16:06] VITALS: BP 108/67
[2020-01-10 16:38] LABS: GLUCOMETER DEV NAME(LOC) BV2X.; GLUCOSE,POINT OF CARE 102 MG/DL (70-110)
[2020-01-10] MEDS: TraZODone HCL 50 MG TABLET PO SCH (20:21)
[2020-01-10 20:22] LABS: GLUCOMETER DEV NAME(LOC) BV2X.; GLUCOSE,POINT OF CARE 175 MG/DL (70-110)
[2020-01-11 02:34] VITALS: BP 129/74
[2020-01-11 05:21] LABS: GLUCOMETER DEV NAME(LOC) BV2X.; GLUCOSE,POINT OF CARE 121 MG/DL (70-110)
[2020-01-11] MEDS: MetFORMIN HCL 500 MG TABLET PO SCH (06:04)
[2020-01-11] MEDS: INSULIN LISPRO 100 UNITS/ML SQ PRN ×2 (06:29→11:18)
[2020-01-11] MEDS: CITALOPRAM HYDROBROMIDE 20 MG TABLET PO SCH (08:17)
[2020-01-11] MEDS: ATORVASTATIN CALCIUM 20 MG TABLET PO SCH (08:18)
[2020-01-11] MEDS: RisperiDONE 1 MG TABLET PO SCH (08:18)
[2020-01-11] MEDS: DIVALPROEX SODIUM 500 MG ER TABLET PO SCH (08:18)
[2020-01-11] MEDS: GABAPENTIN 400 MG CAPSULE PO SCH ×2 (08:18→13:42)
[2020-01-11] MEDS: OMEGA-3/DHA/EPA/FISH OIL 1,000 MG CAPSULE PO SCH (08:18)
[2020-01-11] MEDS: LISINOPRIL 10 MG TABLET PO SCH (08:18)
[2020-01-11] MEDS: ASPIRIN 81 MG CHEWABLE TABLET PO SCH (08:18)
[2020-01-11] MEDS: LOPERAMIDE HCL 2 MG CAPSULE PO PRN (08:23)
[2020-01-11] MEDS: LORazepam 2 MG TABLET PO PRN (08:24)
[2020-01-11 08:32] VITALS: BP 134/70
[2020-01-11] MEDS: INSULIN GLARGINE,HUM.REC.ANLOG 100 UNITS/ML SQ SCH (10:29)
[2020-01-11 11:19] LABS: GLUCOMETER DEV NAME(LOC) BV2X.; GLUCOSE,POINT OF CARE 178 MG/DL (70-110)
== END 2020-01-11 13:30 | disposition home or self-care (01) | DRG 885 ==
LOC: EMS 18:34 → B2X 12-31 00:30
PROVIDERS: ADMIT Psychiatry & Neurology Psychiatry; ATTEND Psychiatry & Neurology Psychiatry
DX: F25.0 Schizoaffective disorder, bipolar type (principal); E11.65 Type 2 diabetes mellitus with hyperglycemia; R45.851 Suicidal ideations; I10 Essential (primary) hypertension; G89.29 Other chronic pain; J44.9 Chronic obstructive pulmonary disease, unspecified; F41.9 Anxiety disorder, unspecified; K25.9 Gastric ulcer, unspecified as acute or chronic, without hemorrhage or perforation; G47.00 Insomnia, unspecified; K59.00 Constipation, unspecified; N28.9 Disorder of kidney and ureter, unspecified; Z88.8 Allergy status to other drugs, medicaments and biological substances; Z87.11 Personal history of peptic ulcer disease
CPT/HCPCS: 83036; 84439; 84443; 87045; G0480; J1815

== ENCOUNTER 2020-02-02 14:40 | Emergency (ER) | payer MEDICARE, OTHER ==
[~2020-02-02] VITALS: Ht 182.9 cm; Wt 79.5 kg
[~2020-02-02 14:40] MED LIST changes: +ASPI-728 PO; +ATOR20TA86 PO; +CITA-106 PO; +DIVA500T52 PO; +GABA-533 PO; +LISI-661 PO; +TRAZ-252 PO
[2020-02-02 15:24] VITALS: BP 124/74
== END 2020-02-02 16:21 | disposition home or self-care (01) ==
LOC: EMS 14:46
DX: S01.81XD Laceration without foreign body of other part of head, subsequent encounter (principal); E11.9 Type 2 diabetes mellitus without complications; F31.9 Bipolar disorder, unspecified; F20.9 Schizophrenia, unspecified; I10 Essential (primary) hypertension; Z79.84 Long term (current) use of oral hypoglycemic drugs; Z79.82 Long term (current) use of aspirin; Z79.899 Other long term (current) drug therapy; Z88.8 Allergy status to other drugs, medicaments and biological substances; X58.XXXD Exposure to other specified factors, subsequent encounter

== ENCOUNTER 2020-04-01 16:24 | Emergency (ER) | payer MEDICARE, OTHER ==
[~2020-04-01] VITALS: Ht 182.9 cm; Wt 79.5 kg
[~2020-04-01 16:24] MED LIST changes: -CITA-106 PO; +CITA-144 PO; +DIVA-80 PO; -DIVA500T52 PO; +GABA-1201 PO; -GABA-533 PO; -RISP1 PO; +RISP1TAB27 PO
[2020-04-01 17:31] LABS: GLUCOSE,POINT OF CARE 355 MG/DL (70-110)
[2020-04-01 18:03] LABS: BASOPHILS % (AUTO) 0.4 % (0.0-2.0); EOSINOPHILS % (AUTO) 1.6 % (1.0-6.0); HEMATOCRIT 32.7 % (41-53); HEMOGLOBIN 11.1 g/dL (13.5-17.5); LYMPHOCYTES % (AUTO) 27.2 % (22.0-44.0); MEAN CORPUSCULAR HEMOGLOBIN 29.8 pg (26.0-34.0); MEAN CORPUSCULAR HGB CONC 33.9 G/dL (31.0-37.0); MEAN CORPUSCULAR VOLUME 88 fL (80-100); MONOCYTES # (AUTO) 0.7 K/uL (0.1-1.0); MONOCYTES % (AUTO) 9.5 % (2.0-9.0); NEUTROPHILS # (AUTO) 4.4 K/uL (1.8-7.7); NEUTROPHILS % (AUTO) 61.3 % (40.0-70.0); PLATELET COUNT (AUTO) 309 K/uL (150-450); RED BLOOD CELL COUNT(AUTO) 3.72 MIL/uL (4.50-5.90); RED CELL DISTRIBUTION WIDTH 13.4 % (11.5-14.5)
[2020-04-01 18:20] LABS: LACTIC ACID 0.8 mmol/L (0.4-2.0)
[2020-04-01 18:26] LABS: ANION GAP 7 mmol/L (8-16); CALCIUM, TOTAL 9.1 mg/dL (8.8-10.5); CARBON DIOXIDE 26 mmol/L (22-29); CHLORIDE 99 mmol/L (98-107); GLOMERULAR FILTR. RATE CALC > 60 mL/min (>60); GLUCOSE,RANDOM 358 mg/dL (70-110); POTASSIUM 4.2 mmol/L (3.5-5.1); SODIUM SERUM 132 mmol/L (136-145); TROPONIN I < 0.02 ng/mL (0.00-0.05); UREA NITROGEN, BLOOD 25 mg/dL (7-18)
[2020-04-01 18:33] LABS: AMMONIA < 10 umol/L (11-32)
[2020-04-01 18:41] LABS: ALANINE AMINOTRANSFERASE 20 U/L (12-78); ALBUMIN 3.4 g/dL (3.4-5.0); ALKALINE PHOSPHATASE 91 U/L (46-116); ASPARTATE AMINOTRANSFERASE 12 U/L (15-37); BILIRUBIN,TOTAL 0.5 mg/dL (0.1-1.0); TOTAL PROTEIN, SERUM 8.6 g/dL (6.4-8.2)
[2020-04-01 18:44] LABS: AMPHET/METH SCREEN,URINE POSITIVE (NEGATIVE); BARBITURATE SCREEN, URINE NEGATIVE (NEGATIVE); BENZODIAZEPINES SCREEN,URINE NEGATIVE (NEGATIVE); CANNABINOID SCREEN,URINE NEGATIVE (NEGATIVE); COCAINE SCREEN,URINE NEGATIVE (NEGATIVE); METHADONE SCREEN, URINE NEGATIVE (NEGATIVE); OPIATE SCREEN,URINE NEGATIVE (NEGATIVE)
[2020-04-01 18:47] LABS: APPEARANCE,URINE CLEAR (CLEAR); BILIRUBIN,URINE NEGATIVE (NEGATIVE); GLUCOSE, URINE (UA) >=1000 mg/dL (NEGATIVE); KETONES,URINE TRACE mg/dL (NEGATIVE); LEUKOCYTE ESTERASE ,URINE NEGATIVE (NEGATIVE); NITRATE,URINE NEGATIVE (NEGATIVE); OCCULT BLOOD,URINE TRACE (NEGATIVE); PH,URINE 5.5 (5.0-8.0); PROTEIN,URINE SEE CONFIRM (NEGATIVE); UROBILINOGEN,URINE 0.2 mg/dL (<=1.0)
[2020-04-01 18:55] LABS: PHENCYCLIDINE SCREEN,URINE NEGATIVE (NEGATIVE)
[2020-04-01 19:03] LABS: VALPROIC ACID < 3 mcg/mL (50-100)
[2020-04-01 19:25] LABS: SULFOSALICYLIC ACID,URINE 3+ (Negative)
[2020-04-01 19:26] LABS: BACTERIA,URINE None Seen /HPF (None Seen)
[2020-04-01 19:27] LABS: RBC,URINE 0-2 /HPF (0-2); SQUAMOUS EPITHELIAL CELL,UR None Seen /LPF (None Seen); WBC,URINE 0-2 /HPF (0-5)
[2020-04-01] MEDS ORDERED: LORazepam 2 MG/ML VIAL IVP ONE (19:30)
[2020-04-01] MEDS ORDERED: HALOPERIDOL 5 MG TABLET PO ONE (19:30)
[2020-04-01] MEDS ORDERED: LORazepam 1 MG TABLET PO ONE (19:45)
[2020-04-02 03:32] VITALS: BP 130/76
== END 2020-04-02 03:34 | disposition home or self-care (01) ==
LOC: EMS 16:29
DX: F15.129 Other stimulant abuse with intoxication, unspecified (principal); R41.0 Disorientation, unspecified; E11.22 Type 2 diabetes mellitus with diabetic chronic kidney disease; I12.9 Hypertensive chronic kidney disease with stage 1 through stage 4 chronic kidney disease, or unspecified chronic kidney disease; N18.9 Chronic kidney disease, unspecified; F31.9 Bipolar disorder, unspecified; F20.9 Schizophrenia, unspecified; F17.200 Nicotine dependence, unspecified, uncomplicated; Z88.8 Allergy status to other drugs, medicaments and biological substances; Z91.018 Allergy to other foods; Z79.899 Other long term (current) drug therapy; Z79.84 Long term (current) use of oral hypoglycemic drugs; Z79.82 Long term (current) use of aspirin
CPT/HCPCS: 70450; 83605; 93005

== ENCOUNTER 2020-10-17 12:29 | Inpatient (IN) | payer MEDICARE, OTHER ==
[~2020-10-17] VITALS: Ht 182.9 cm; Wt 98.0 kg
[~2020-10-17 12:29] MED LIST changes: -RISP1TAB27 PO; +RISP1TAB48 PO
[2020-10-17] MEDS ORDERED: PIPERACILLIN/TAZO 3.375 GM/D5W 50 ML IV ONE (12:45)
[2020-10-17] MEDS ORDERED: VANCOMYCIN HCL 1.5 GM in DEXTROSE 5%-WATER 250 ML IV ONE (12:45)
[2020-10-17] MEDS ORDERED: 0.9% SODIUM CHLORIDE 10 ML SYRINGE IVP PRN (12:45)
[2020-10-17] MEDS ORDERED: SODIUM CHLORIDE 0.9% 1,000 ML IV ONE ×2 (13:30→22:30)
[2020-10-17] MEDS ORDERED: SODIUM CHLORIDE 0.9% 2,800 ML IV ONE (13:30)
[2020-10-17 13:33] LABS: BASOPHILS % (AUTO) 0.3 % (0.0-2.0); EOSINOPHILS % (AUTO) 0.1 % (1.0-6.0); HEMATOCRIT 28.1 % (41-53); HEMOGLOBIN 8.9 g/dL (13.5-17.5); LYMPHOCYTES # (AUTO) 1.5 K/uL (1.0-4.8); LYMPHOCYTES % (AUTO) 14.1 % (22.0-44.0); MEAN CORPUSCULAR HEMOGLOBIN 30.4 pg (26.0-34.0); MEAN CORPUSCULAR HGB CONC 31.9 G/dL (31.0-37.0); MEAN CORPUSCULAR VOLUME 95 fL (80-100); MONOCYTES # (AUTO) 1.9 K/uL (0.1-1.0); NEUTROPHILS % (AUTO) 67.5 % (40.0-70.0); PLATELET COUNT (AUTO) 180 K/uL (150-450); RED BLOOD CELL COUNT(AUTO) 2.94 MIL/uL (4.50-5.90); RED CELL DISTRIBUTION WIDTH 15.3 % (11.5-14.5)
[2020-10-17 13:42] LABS: PROTHROMBIN TIME 10.8 SEC (9.4-11.6)
[2020-10-17] MEDS ORDERED: ACETAMINOPHEN 325 MG TABLET PO PRN (13:45)
[2020-10-17] MEDS ORDERED: ONDANSETRON HCL 4 MG/2 ML VIAL IVP PRN (13:45)
[2020-10-17 13:55] LABS: LACTIC ACID 5.7 mmol/L (0.4-2.0)
[2020-10-17 13:56] LABS: B-TYPE NATRIURETIC PEPTIDE 830 pg/mL (0-100)
[2020-10-17 13:59] LABS: COVID AG,FIA SOURCE NASOPHARYNGEAL
[2020-10-17 14:04] LABS: ALANINE AMINOTRANSFERASE 187 U/L (12-78); ALBUMIN 2.7 g/dL (3.4-5.0); ALKALINE PHOSPHATASE 83 U/L (46-116); ANION GAP 15 mmol/L (8-16); ASPARTATE AMINOTRANSFERASE 218 U/L (15-37); BILIRUBIN,TOTAL 0.5 mg/dL (0.1-1.0); CALCIUM, TOTAL 8.2 mg/dL (8.8-10.5); CARBON DIOXIDE 20 mmol/L (22-29); CHLORIDE 104 mmol/L (98-107); CREATINE KINASE, TOTAL ONLY 236 U/L (39-308); CREATININE 2.23 mg/dL (0.60-1.30); GLOMERULAR FILTR. RATE CALC 31 mL/min (>60); GLUCOSE,RANDOM 388 mg/dL (70-110); SODIUM SERUM 139 mmol/L (136-145); UREA NITROGEN, BLOOD 44 mg/dL (7-18)
[2020-10-17 14:07] LABS: POTASSIUM 6.6 mmol/L (3.5-5.1)
[2020-10-17] MEDS ORDERED: INSULIN REGULAR, HUMAN 100 UNITS/ML IVP ONE (14:15)
[2020-10-17] MEDS ORDERED: SODIUM BICARBONATE [ADULT] 8.4% 50 MEQ/50 ML SYRINGE IVP ONE (14:15)
[2020-10-17] MEDS ORDERED: CALCIUM GLUCONATE 2,000 MG in DEXTROSE 5%-WATER 50 ML IV ONE (14:15)
[2020-10-17] MEDS ORDERED: ALBUTEROL SULFATE 2.5 MG/0.5 ML NEB SOLUTION NEB ONE (14:15)
[2020-10-17 14:19] LABS: VALPROIC ACID 15 mcg/mL (50-100)
[2020-10-17] MEDS ORDERED: DEXTROSE 50%-WATER 25 GM/50 ML SYRINGE IVP ONE (15:00)
[2020-10-17 15:06] LABS: SOURCE, BLOOD GAS ARTERIAL; TEMPERATURE, FAHRENHEIT, BG 98.6 FAHREN (96.0-98.6)
[2020-10-17] MEDS ORDERED: DEXTROSE 50%-WATER 25 GM/50 ML SYRINGE IVP PRN ×2 (15:15→15:30)
[2020-10-17] MEDS ORDERED: INSULIN LISPRO 100 UNITS/ML SQ PRN (15:15)
[2020-10-17 15:18] LABS: ABG A-A DIFF O2 106.6 mmHg (10-20.0); ABG BASE EXCESS -9.2 mmol/L (-2.0-3.0); ABG CARBOXYHEMOGLOBIN 0.3 % (0.0-1.5); ABG HCO3 17.6 mmol/L (22.0-26.0); ABG OXYGEN CONTENT 12.8 mL/dL (15.0-23.0); ABG OXYGEN SATURATION 94.3 % (95.0-98.0); ABG PCO2 35 mmHg (35-45); ABG PH 7.303 (7.35-7.450); ABG TOTAL HEMOGLOBIN 9.6 G/dL (12.0-18.0); PO2, ARTERIAL BG 80.1 mmHg (84.0-92.0); SITE, BLOOD GAS RT RADIAL
[2020-10-17 15:18] LABS: INFLUENZA TYPE A NEGATIVE FOR TYPE A (NEGATIVE); INFLUENZA TYPE B NEGATIVE FOR TYPE B (NEGATIVE)
[2020-10-17 15:19] LABS: O2 DEVICE,BLOOD GAS CANNULA (ROOM AIR)
[2020-10-17] MEDS ORDERED: DEXAMETHASONE SOD PHOS 4 MG/ML 5 ML VIAL IVP ONE (15:30)
[2020-10-17 15:59] LABS: D-DIMER 1.19 mg/L FEU (0.00-0.50)
[2020-10-17 16:03] LABS: C-REACTIVE PROTEIN QUANT 5.06 mg/dL (0.00-0.30); FERRITIN 2082 ng/mL (26-388); LACTATE DEHYDROGENASE 466 U/L (85-227)
[2020-10-17] MEDS ORDERED: FUROSEMIDE 40 MG/4 ML VIAL IVP ONE (17:00)
[2020-10-17] MEDS ORDERED: REMDESIVIR 200 MG in SODIUM CHLORIDE 0.9% 250 ML IV ONE (17:00)
[2020-10-17 18:09] LABS: APPEARANCE,URINE CLOUDY (CLEAR); GLUCOSE, URINE (UA) >=1000 mg/dL (NEGATIVE); KETONES,URINE NEGATIVE (NEGATIVE); LEUKOCYTE ESTERASE ,URINE MODERATE (NEGATIVE); NITRATE,URINE NEGATIVE (NEGATIVE); OCCULT BLOOD,URINE LARGE (NEGATIVE); PROTEIN,URINE SEE CONFIRM (NEGATIVE); UROBILINOGEN,URINE 0.2 mg/dL (<=1.0)
[2020-10-17 18:14] LABS: AMPHET/METH SCREEN,URINE NEGATIVE (NEGATIVE); BARBITURATE SCREEN, URINE NEGATIVE (NEGATIVE); BENZODIAZEPINES SCREEN,URINE NEGATIVE (NEGATIVE); CANNABINOID SCREEN,URINE NEGATIVE (NEGATIVE); COCAINE SCREEN,URINE NEGATIVE (NEGATIVE); METHADONE SCREEN, URINE NEGATIVE (NEGATIVE); OPIATE SCREEN,URINE NEGATIVE (NEGATIVE)
[2020-10-17 18:15] LABS: PHENCYCLIDINE SCREEN,URINE NEGATIVE (NEGATIVE)
[2020-10-17 18:20] LABS: BILIRUBIN,URINE PRELIM. POSITIVE (NEGATIVE)
[2020-10-17 18:31] LABS: SULFOSALICYLIC ACID,URINE 3+ (Negative)
[2020-10-17 18:32] LABS: WBC,URINE 51-100 /HPF (0-5)
[2020-10-17 18:33] LABS: BACTERIA,URINE Few /HPF (None Seen); RBC,URINE 0-2 /HPF (0-2); SQUAMOUS EPITHELIAL CELL,UR Few /LPF (None Seen)
[2020-10-17 18:56] LABS: CALCIUM, TOTAL 8.2 mg/dL (8.8-10.5); CREATININE 2.09 mg/dL (0.60-1.30)
[2020-10-17 19:03] LABS: GLUCOSE,POINT OF CARE 287 MG/DL (70-110)
[2020-10-17 19:03] LABS: GLUCOSE,POINT OF CARE 365 MG/DL (70-110)
[2020-10-17 19:03] LABS: GLUCOSE,POINT OF CARE 314 MG/DL (70-110)
[2020-10-17 19:07] LABS: POTASSIUM 6.4 mmol/L (3.5-5.1)
[2020-10-17] MEDS ORDERED: SODIUM POLYSTYRENE SULFONATE 15 GM/60 ML SUSPENSION BOTTLE PO ONE (19:30)
[2020-10-17 19:38] LABS: LACTIC ACID 4.1 mmol/L (0.4-2.0)
[2020-10-17] MEDS: PIPERACILLIN/TAZO 3.375 GM/D5W 50 ML IV SCH (20:46)
[2020-10-17] MEDS: HEPARIN SODIUM,PORCINE 5,000 UNITS/ML VIAL SQ SCH (20:51)
[2020-10-18] VITALS (12 sets, daily range): BP systolic 141–178; BP diastolic 66–96
[2020-10-18] MEDS: PIPERACILLIN/TAZO 3.375 GM/D5W 50 ML IV SCH ×4 (03:01→22:07)
[2020-10-18] MEDS: INSULIN LISPRO 100 UNITS/ML SQ PRN ×4 (05:43→22:44)
[2020-10-18 06:35] LABS: HEMATOCRIT 26.7 % (41-53); HEMOGLOBIN 8.8 g/dL (13.5-17.5); MEAN CORPUSCULAR HEMOGLOBIN 30.7 pg (26.0-34.0); MEAN CORPUSCULAR HGB CONC 32.9 G/dL (31.0-37.0); MEAN CORPUSCULAR VOLUME 93 fL (80-100); PLATELET COUNT (AUTO) 179 K/uL (150-450); RED BLOOD CELL COUNT(AUTO) 2.86 MIL/uL (4.50-5.90); RED CELL DISTRIBUTION WIDTH 14.7 % (11.5-14.5)
[2020-10-18 06:48] LABS: GLUCOSE,POINT OF CARE 346 MG/DL (70-110)
[2020-10-18] MEDS ORDERED: VANCOMYCIN HCL 1.25 GM in DEXTROSE 5%-WATER 250 ML IV SCH (07:00)
[2020-10-18 07:14] LABS: ALBUMIN 2.5 g/dL (3.4-5.0); BILIRUBIN,TOTAL 0.3 mg/dL (0.1-1.0); CALCIUM, TOTAL 8.2 mg/dL (8.8-10.5); CREATININE 1.55 mg/dL (0.60-1.30); POTASSIUM 5.1 mmol/L (3.5-5.1); TOTAL PROTEIN, SERUM 7.6 g/dL (6.4-8.2)
[2020-10-18] MEDS: HEPARIN SODIUM,PORCINE 5,000 UNITS/ML VIAL SQ SCH ×3 (08:48→22:54)
[2020-10-18 10:29] LABS: ABG A-A DIFF O2 319.4 mmHg (10-20.0); ABG CARBOXYHEMOGLOBIN 0.3 % (0.0-1.5); ABG HCO3 24.4 mmol/L (22.0-26.0); ABG OXYGEN SATURATION 91.7 % (95.0-98.0); ABG OXYHEMOGLOBIN 91.4 % (94.0-100.0); ABG PCO2 41 mmHg (35-45); ABG PH 7.402 (7.35-7.450); ABG TOTAL HEMOGLOBIN 10.1 G/dL (12.0-18.0); SOURCE, BLOOD GAS ARTERIAL; TEMPERATURE, FAHRENHEIT, BG 98.3 FAHREN (96.0-98.6)
[2020-10-18 10:31] LABS: O2 DEVICE,BLOOD GAS CANNULA (ROOM AIR); SITE, BLOOD GAS LFT RADIAL
[2020-10-18] MEDS ORDERED: REMDESIVIR 200 MG in SODIUM CHLORIDE 0.9% 250 ML IV ONE (11:00)
[2020-10-18 12:43] LABS: GLUCOSE,POINT OF CARE 292 MG/DL (70-110)
[2020-10-18 13:39] LABS: BAND NEUTROPHILS % (MANUAL) 11 % (0-5); LYMPHOCYTES % (MANUAL) 11 % (22-44); MONOCYTES % (MANUAL) 4 % (2-9); SEGMENTED NEUTROPHILS % 74 % (40-70)
[2020-10-18] MEDS ORDERED: PNEUMOCOCCAL VACCINE POLYVALENT 0.5 ML VIAL [PPSV23] IM ONE (16:00)
[2020-10-18] MEDS ORDERED: INFLUENZA VIRUS VACCINE QVS 2020-21 (6MO+)/PF 60 MCG/0.5 ML SYRINGE IM ONE (16:00)
[2020-10-18] MEDS ORDERED: SODIUM CHLORIDE 0.9% 250 ML IV ONE (16:11)
[2020-10-18] MEDS ORDERED: REMDESIVIR 100 MG in SODIUM CHLORIDE 0.9% 250 ML IV SCH (18:00)
[2020-10-18] MEDS ORDERED: VANCOMYCIN HCL 1 GM/D5% WATER 200 ML IV SCH (20:00)
[2020-10-18] MEDS: ZINC SULFATE 220 MG CAPSULE PO SCH (20:10)
[2020-10-18 22:55] LABS: GLUCOMETER DEV NAME(LOC) 5S.1; GLUCOSE,POINT OF CARE 219 MG/DL (70-110)
[2020-10-18] MEDS: DEXAMETHASONE SOD PHOS 4 MG/ML VIAL IVP SCH (23:45)
[2020-10-19] MEDS: PIPERACILLIN/TAZO 3.375 GM/D5W 50 ML IV SCH ×3 (02:32→14:54)
[2020-10-19 03:56] VITALS: BP 150/79
[2020-10-19] MEDS: INSULIN LISPRO 100 UNITS/ML SQ PRN ×4 (06:17→22:22)
[2020-10-19 06:45] LABS: GLUCOMETER DEV NAME(LOC) 5N.1B; GLUCOSE,POINT OF CARE 254 MG/DL (70-110)
[2020-10-19 07:23] LABS: ALBUMIN 2.4 g/dL (3.4-5.0); BILIRUBIN,TOTAL 0.6 mg/dL (0.1-1.0); C-REACTIVE PROTEIN QUANT 13.24 mg/dL (0.00-0.30); CALCIUM, TOTAL 8.4 mg/dL (8.8-10.5); CREATININE 1.27 mg/dL (0.60-1.30); POTASSIUM 5.1 mmol/L (3.5-5.1); TOTAL PROTEIN, SERUM 7.8 g/dL (6.4-8.2)
[2020-10-19 07:48] LABS: GLUCOMETER DEV NAME(LOC) 5S.1; GLUCOSE,POINT OF CARE 247 MG/DL (70-110)
[2020-10-19 07:50] VITALS: BP 143/89
[2020-10-19] MEDS: HEPARIN SODIUM,PORCINE 5,000 UNITS/ML VIAL SQ SCH ×2 (10:11→15:02)
[2020-10-19] MEDS: DEXAMETHASONE SOD PHOS 4 MG/ML VIAL IVP SCH (10:11)
[2020-10-19] MEDS: ASCORBIC ACID 500 MG TABLET PO SCH ×2 (10:11→22:07)
[2020-10-19] MEDS: FAMOTIDINE 20 MG TABLET PO SCH ×2 (10:12→22:07)
[2020-10-19] MEDS: CHOLECALCIFEROL (VIT D3) 1,000 UNITS [25 MCG] TABLET PO SCH (10:12)
[2020-10-19] MEDS: ZINC SULFATE 220 MG CAPSULE PO SCH ×2 (10:12→22:07)
[2020-10-19] MEDS: VANCOMYCIN HCL 1.25 GM in DEXTROSE 5%-WATER 250 ML IV SCH ×2 (10:13→22:07)
[2020-10-19 11:48] VITALS: BP 165/95
[2020-10-19 12:42] LABS: GLUCOMETER DEV NAME(LOC) 5N.3; GLUCOSE,POINT OF CARE 304 MG/DL (70-110)
[2020-10-19] MEDS: SODIUM CHLORIDE 0.9% 1,000 ML IV SCH (14:54)
[2020-10-19 15:20] VITALS: BP 147/87
[2020-10-19 19:50] VITALS: BP 143/84
[2020-10-19 20:02] LABS: GLUCOMETER DEV NAME(LOC) 5S.2B; GLUCOSE,POINT OF CARE 350 MG/DL (70-110)
[2020-10-19 23:20] VITALS: BP 150/69
[2020-10-20] MEDS: HEPARIN SODIUM,PORCINE 5,000 UNITS/ML VIAL SQ SCH ×3 (00:33→15:11)
[2020-10-20] MEDS: PIPERACILLIN/TAZO 3.375 GM/D5W 50 ML IV SCH ×4 (00:33→15:11)
[2020-10-20 03:54] VITALS: BP 152/87
[2020-10-20] MEDS: SODIUM CHLORIDE 0.9% 1,000 ML IV SCH (05:18)
[2020-10-20] MEDS: INSULIN LISPRO 100 UNITS/ML SQ PRN ×4 (05:34→21:52)
[2020-10-20 06:36] LABS: GLUCOMETER DEV NAME(LOC) 5N.3; GLUCOSE,POINT OF CARE 320 MG/DL (70-110)
[2020-10-20 07:45] VITALS: BP 148/86
[2020-10-20 08:06] LABS: ALANINE AMINOTRANSFERASE 1174 U/L (12-78); ALBUMIN 2.1 g/dL (3.4-5.0); ALKALINE PHOSPHATASE 68 U/L (46-116); ANION GAP 7 mmol/L (8-16); ASPARTATE AMINOTRANSFERASE 511 U/L (15-37); BILIRUBIN,TOTAL 0.5 mg/dL (0.1-1.0); C-REACTIVE PROTEIN QUANT 8.09 mg/dL (0.00-0.30); CALCIUM, TOTAL 8.4 mg/dL (8.8-10.5); CARBON DIOXIDE 27 mmol/L (22-29); CHLORIDE 99 mmol/L (98-107); CREATININE 1.17 mg/dL (0.60-1.30); GLOMERULAR FILTR. RATE CALC > 60 mL/min (>60); GLUCOSE,RANDOM 387 mg/dL (70-110); PHOSPHORUS 3.6 mg/dL (2.5-4.9); SODIUM SERUM 133 mmol/L (136-145); TOTAL PROTEIN, SERUM 7.7 g/dL (6.4-8.2); UREA NITROGEN, BLOOD 33 mg/dL (7-18); VANCOMYCIN,RANDOM 21.7 mcg/mL (25.0-50.0)
[2020-10-20 09:19] LABS: BASOPHILS % (AUTO) 0.5 % (0.0-2.0); EOSINOPHILS % (AUTO) 0.1 % (1.0-6.0); HEMATOCRIT 31.1 % (41-53); HEMOGLOBIN 10.1 g/dL (13.5-17.5); LYMPHOCYTES # (AUTO) 1.4 K/uL (1.0-4.8); LYMPHOCYTES % (AUTO) 28.9 % (22.0-44.0); MEAN CORPUSCULAR HEMOGLOBIN 30.2 pg (26.0-34.0); MEAN CORPUSCULAR HGB CONC 32.5 G/dL (31.0-37.0); MEAN CORPUSCULAR VOLUME 93 fL (80-100); MONOCYTES # (AUTO) 0.6 K/uL (0.1-1.0); MONOCYTES % (AUTO) 11.6 % (2.0-9.0); NEUTROPHILS % (AUTO) 58.9 % (40.0-70.0); PLATELET COUNT (AUTO) 245 K/uL (150-450); RED BLOOD CELL COUNT(AUTO) 3.34 MIL/uL (4.50-5.90); RED CELL DISTRIBUTION WIDTH 14.3 % (11.5-14.5)
[2020-10-20] MEDS: DEXAMETHASONE SOD PHOS 4 MG/ML VIAL IVP SCH (09:41)
[2020-10-20] MEDS: FAMOTIDINE 20 MG TABLET PO SCH ×2 (09:41→21:32)
[2020-10-20] MEDS: CHOLECALCIFEROL (VIT D3) 1,000 UNITS [25 MCG] TABLET PO SCH (09:41)
[2020-10-20] MEDS: ASCORBIC ACID 500 MG TABLET PO SCH ×2 (09:41→21:32)
[2020-10-20] MEDS: ZINC SULFATE 220 MG CAPSULE PO SCH ×2 (09:41→21:32)
[2020-10-20] MEDS: VANCOMYCIN HCL 1.25 GM in DEXTROSE 5%-WATER 250 ML IV SCH (09:42)
[2020-10-20 11:30] LABS: GLUCOMETER DEV NAME(LOC) 5S.1; GLUCOSE,POINT OF CARE 419 MG/DL (70-110)
[2020-10-20 11:30] LABS: GLUCOMETER DEV NAME(LOC) 5S.1; GLUCOSE,POINT OF CARE 412 MG/DL (70-110)
[2020-10-20 11:30] LABS: GLUCOMETER DEV NAME(LOC) 5S.1; GLUCOSE,POINT OF CARE 367 MG/DL (70-110)
[2020-10-20 12:05] VITALS: BP 152/71
[2020-10-20] MEDS ORDERED: INSULIN GLARGINE,HUM.REC.ANLOG 100 UNITS/ML SQ ONE (12:45)
[2020-10-20 16:30] VITALS: BP 167/86
[2020-10-20 20:52] LABS: GLUCOMETER DEV NAME(LOC) 5S.2B; GLUCOSE,POINT OF CARE 446 MG/DL (70-110)
[2020-10-20] MEDS: VANCOMYCIN HCL 1.5 GM in DEXTROSE 5%-WATER 250 ML IV SCH (21:32)
[2020-10-20] MEDS: ENOXAPARIN SODIUM 40 MG/0.4 ML PF SYRINGE SQ SCH (21:32)
[2020-10-20 21:39] VITALS: BP 163/76
[2020-10-20] MEDS: INSULIN GLARGINE,HUM.REC.ANLOG 100 UNITS/ML SQ SCH (21:51)
[2020-10-21] MEDS: PIPERACILLIN/TAZO 3.375 GM/D5W 50 ML IV SCH ×5 (00:03→23:42)
[2020-10-21] MEDS: SODIUM CHLORIDE 0.9% 1,000 ML IV SCH (00:03)
[2020-10-21 00:50] VITALS: BP 150/75
[2020-10-21 04:30] VITALS: BP 175/77
[2020-10-21 06:04] LABS: GLUCOMETER DEV NAME(LOC) 5N.1B; GLUCOSE,POINT OF CARE 347 MG/DL (70-110)
[2020-10-21] MEDS: INSULIN LISPRO 100 UNITS/ML SQ PRN ×3 (06:16→17:42)
[2020-10-21 06:41] LABS: GLUCOMETER DEV NAME(LOC) 5S.2B; GLUCOSE,POINT OF CARE 257 MG/DL (70-110)
[2020-10-21 06:50] LABS: BASOPHILS % (AUTO) 0.1 % (0.0-2.0); EOSINOPHILS % (AUTO) 0.1 % (1.0-6.0); HEMATOCRIT 30.8 % (41-53); LYMPHOCYTES # (AUTO) 1.8 K/uL (1.0-4.8); LYMPHOCYTES % (AUTO) 27.8 % (22.0-44.0); MEAN CORPUSCULAR HEMOGLOBIN 29.7 pg (26.0-34.0); MEAN CORPUSCULAR HGB CONC 32.5 G/dL (31.0-37.0); MEAN CORPUSCULAR VOLUME 91 fL (80-100); MONOCYTES # (AUTO) 0.7 K/uL (0.1-1.0); MONOCYTES % (AUTO) 11.3 % (2.0-9.0); NEUTROPHILS # (AUTO) 3.9 K/uL (1.8-7.7); NEUTROPHILS % (AUTO) 60.7 % (40.0-70.0); PLATELET COUNT (AUTO) 251 K/uL (150-450); RED BLOOD CELL COUNT(AUTO) 3.37 MIL/uL (4.50-5.90); RED CELL DISTRIBUTION WIDTH 14.1 % (11.5-14.5)
[2020-10-21 07:19] LABS: ALANINE AMINOTRANSFERASE 691 U/L (12-78); ALBUMIN 2.1 g/dL (3.4-5.0); ALKALINE PHOSPHATASE 59 U/L (46-116); ANION GAP 1 mmol/L (8-16); ASPARTATE AMINOTRANSFERASE 137 U/L (15-37); BILIRUBIN,TOTAL 0.4 mg/dL (0.1-1.0); C-REACTIVE PROTEIN QUANT 3.58 mg/dL (0.00-0.30); CALCIUM, TOTAL 8.1 mg/dL (8.8-10.5); CARBON DIOXIDE 30 mmol/L (22-29); CHLORIDE 101 mmol/L (98-107); CREATININE 1.15 mg/dL (0.60-1.30); GLOMERULAR FILTR. RATE CALC > 60 mL/min (>60); GLUCOSE,RANDOM 283 mg/dL (70-110); POTASSIUM 4.2 mmol/L (3.5-5.1); SODIUM SERUM 132 mmol/L (136-145); TOTAL PROTEIN, SERUM 7.2 g/dL (6.4-8.2); UREA NITROGEN, BLOOD 28 mg/dL (7-18)
[2020-10-21 08:08] VITALS: BP 165/97
[2020-10-21] MEDS: FAMOTIDINE 20 MG TABLET PO SCH ×2 (09:12→23:41)
[2020-10-21] MEDS: VANCOMYCIN HCL 1.5 GM in DEXTROSE 5%-WATER 250 ML IV SCH ×3 (09:12→23:42)
[2020-10-21] MEDS: CHOLECALCIFEROL (VIT D3) 1,000 UNITS [25 MCG] TABLET PO SCH (09:12)
[2020-10-21] MEDS: ENOXAPARIN SODIUM 40 MG/0.4 ML PF SYRINGE SQ SCH ×2 (09:12→23:42)
[2020-10-21] MEDS: DEXAMETHASONE SOD PHOS 4 MG/ML VIAL IVP SCH (09:13)
[2020-10-21] MEDS: ASCORBIC ACID 500 MG TABLET PO SCH ×2 (09:13→23:41)
[2020-10-21] MEDS: ZINC SULFATE 220 MG CAPSULE PO SCH ×2 (09:13→23:41)
[2020-10-21] MEDS: INSULIN GLARGINE,HUM.REC.ANLOG 100 UNITS/ML SQ SCH (09:14)
[2020-10-21 12:00] VITALS: BP 177/92
[2020-10-21] MEDS: AmLODIPine BESYLATE 10 MG TABLET PO SCH (12:23)
[2020-10-21 16:10] VITALS: BP 154/93
[2020-10-21 20:36] VITALS: BP 150/78
[2020-10-22] MEDS: SODIUM CHLORIDE 0.9% 1,000 ML IV SCH ×3 (00:08→23:49)
[2020-10-22] MEDS: INSULIN GLARGINE,HUM.REC.ANLOG 100 UNITS/ML SQ SCH ×3 (00:18→21:00)
[2020-10-22] MEDS: INSULIN LISPRO 100 UNITS/ML SQ PRN ×3 (00:18→17:50)
[2020-10-22 00:48] VITALS: BP 95/20
[2020-10-22] MEDS: PIPERACILLIN/TAZO 3.375 GM/D5W 50 ML IV SCH ×4 (04:15→23:39)
[2020-10-22 04:40] VITALS: BP 138/43
[2020-10-22 08:20] VITALS: BP 150/79
[2020-10-22 08:33] LABS: GLUCOMETER DEV NAME(LOC) 5N.3; GLUCOSE,POINT OF CARE 350 MG/DL (70-110)
[2020-10-22 08:48] LABS: GLUCOMETER DEV NAME(LOC) 5S.2B; GLUCOSE,POINT OF CARE 307 MG/DL (70-110)
[2020-10-22 08:50] LABS: GLUCOMETER DEV NAME(LOC) 5S.1; GLUCOSE,POINT OF CARE 324 MG/DL (70-110)
[2020-10-22 08:50] LABS: GLUCOMETER DEV NAME(LOC) 5S.2B; GLUCOSE,POINT OF CARE 352 MG/DL (70-110)
[2020-10-22] MEDS: VANCOMYCIN HCL 1.5 GM in DEXTROSE 5%-WATER 250 ML IV SCH ×2 (09:32→23:38)
[2020-10-22] MEDS: DEXAMETHASONE SOD PHOS 4 MG/ML VIAL IVP SCH (09:33)
[2020-10-22] MEDS: ZINC SULFATE 220 MG CAPSULE PO SCH ×2 (09:33→23:41)
[2020-10-22] MEDS: CHOLECALCIFEROL (VIT D3) 1,000 UNITS [25 MCG] TABLET PO SCH (09:33)
[2020-10-22] MEDS: ASCORBIC ACID 500 MG TABLET PO SCH ×2 (09:33→23:41)
[2020-10-22] MEDS: FAMOTIDINE 20 MG TABLET PO SCH ×2 (09:33→23:40)
[2020-10-22] MEDS: AmLODIPine BESYLATE 10 MG TABLET PO SCH (09:33)
[2020-10-22] MEDS: ENOXAPARIN SODIUM 40 MG/0.4 ML PF SYRINGE SQ SCH ×2 (09:34→21:00)
[2020-10-22 12:43] LABS: BASOPHILS % (AUTO) 0.2 % (0.0-2.0); EOSINOPHILS % (AUTO) 0.4 % (1.0-6.0); HEMATOCRIT 30.6 % (41-53); LYMPHOCYTES # (AUTO) 0.7 K/uL (1.0-4.8); LYMPHOCYTES % (AUTO) 11.5 % (22.0-44.0); MEAN CORPUSCULAR HEMOGLOBIN 29.6 pg (26.0-34.0); MEAN CORPUSCULAR HGB CONC 32.7 G/dL (31.0-37.0); MEAN CORPUSCULAR VOLUME 91 fL (80-100); MONOCYTES # (AUTO) 0.5 K/uL (0.1-1.0); MONOCYTES % (AUTO) 8.4 % (2.0-9.0); NEUTROPHILS # (AUTO) 4.7 K/uL (1.8-7.7); NEUTROPHILS % (AUTO) 79.5 % (40.0-70.0); PLATELET COUNT (AUTO) 239 K/uL (150-450); RED BLOOD CELL COUNT(AUTO) 3.38 MIL/uL (4.50-5.90); RED CELL DISTRIBUTION WIDTH 13.8 % (11.5-14.5)
[2020-10-22 12:53] LABS: GLUCOMETER DEV NAME(LOC) 5S.1; GLUCOSE,POINT OF CARE 310 MG/DL (70-110)
[2020-10-22 13:00] LABS: ALANINE AMINOTRANSFERASE 417 U/L (12-78); ALBUMIN 2.1 g/dL (3.4-5.0); ALKALINE PHOSPHATASE 61 U/L (46-116); ANION GAP 1 mmol/L (8-16); ASPARTATE AMINOTRANSFERASE 46 U/L (15-37); BILIRUBIN,TOTAL 0.3 mg/dL (0.1-1.0); C-REACTIVE PROTEIN QUANT 2.08 mg/dL (0.00-0.30); CALCIUM, TOTAL 8.3 mg/dL (8.8-10.5); CARBON DIOXIDE 30 mmol/L (22-29); CHLORIDE 99 mmol/L (98-107); CREATININE 1.11 mg/dL (0.60-1.30); GLOMERULAR FILTR. RATE CALC > 60 mL/min (>60); GLUCOSE,RANDOM 294 mg/dL (70-110); PHOSPHORUS 3.4 mg/dL (2.5-4.9); POTASSIUM 4.2 mmol/L (3.5-5.1); SODIUM SERUM 130 mmol/L (136-145); TOTAL PROTEIN, SERUM 7.4 g/dL (6.4-8.2); UREA NITROGEN, BLOOD 22 mg/dL (7-18)
[2020-10-22 13:05] VITALS: BP 122/62
[2020-10-22 16:05] VITALS: BP 140/70
[2020-10-22 20:13] VITALS: BP 118/57
[2020-10-23 00:23] VITALS: BP 124/62
[2020-10-23] MEDS: PIPERACILLIN/TAZO 3.375 GM/D5W 50 ML IV SCH ×4 (04:53→21:16)
[2020-10-23] MEDS: MORPHINE SULFATE 2 MG/ML SYRINGE IVP PRN ×3 (05:38→18:42)
[2020-10-23 05:47] LABS: GLUCOMETER DEV NAME(LOC) 5S.2B; GLUCOSE,POINT OF CARE 305 MG/DL (70-110)
[2020-10-23 05:48] VITALS: BP 145/70
[2020-10-23] MEDS: INSULIN LISPRO 100 UNITS/ML SQ PRN ×4 (06:17→21:34)
[2020-10-23 07:45] VITALS: BP 155/84
[2020-10-23] MEDS: FAMOTIDINE 20 MG TABLET PO SCH ×2 (08:58→21:22)
[2020-10-23] MEDS: BENZONATATE 100 MG CAPSULE PO SCH ×2 (08:58→15:50)
[2020-10-23] MEDS: ENOXAPARIN SODIUM 40 MG/0.4 ML PF SYRINGE SQ SCH ×2 (08:58→21:21)
[2020-10-23] MEDS: AmLODIPine BESYLATE 10 MG TABLET PO SCH (08:59)
[2020-10-23] MEDS: ASCORBIC ACID 500 MG TABLET PO SCH ×2 (08:59→21:22)
[2020-10-23] MEDS: DEXAMETHASONE SOD PHOS 4 MG/ML VIAL IVP SCH (09:00)
[2020-10-23] MEDS: INSULIN GLARGINE,HUM.REC.ANLOG 100 UNITS/ML SQ SCH (09:00)
[2020-10-23] MEDS: CHOLECALCIFEROL (VIT D3) 1,000 UNITS [25 MCG] TABLET PO SCH (10:52)
[2020-10-23] MEDS: VANCOMYCIN HCL 1.5 GM in DEXTROSE 5%-WATER 250 ML IV SCH ×2 (10:52→21:16)
[2020-10-23] MEDS: ACETAMINOPHEN 500 MG TABLET PO PRN ×2 (10:52→21:26)
[2020-10-23] MEDS: ZINC SULFATE 220 MG CAPSULE PO SCH ×2 (10:52→21:22)
[2020-10-23 11:59] VITALS: BP 154/71
[2020-10-23 12:56] LABS: ANION GAP 6 mmol/L (8-16); C-REACTIVE PROTEIN QUANT 2.28 mg/dL (0.00-0.30); CARBON DIOXIDE 27 mmol/L (22-29); CHLORIDE 97 mmol/L (98-107); CREATININE 1.04 mg/dL (0.60-1.30); GLOMERULAR FILTR. RATE CALC > 60 mL/min (>60); GLUCOSE,RANDOM 331 mg/dL (70-110); SODIUM SERUM 130 mmol/L (136-145); UREA NITROGEN, BLOOD 19 mg/dL (7-18); VANCOMYCIN,RANDOM 23.6 mcg/mL (25.0-50.0)
[2020-10-23 13:30] LABS: GLUCOMETER DEV NAME(LOC) 5S.2B; GLUCOSE,POINT OF CARE 292 MG/DL (70-110)
[2020-10-23 15:25] VITALS: BP 124/71
[2020-10-23 17:59] LABS: GLUCOMETER DEV NAME(LOC) 5N.1B; GLUCOSE,POINT OF CARE 292 MG/DL (70-110)
[2020-10-23] MEDS ORDERED: INSULIN GLARGINE,HUM.REC.ANLOG 100 UNITS/ML SQ SCH (21:00)
[2020-10-23 21:20] LABS: GLUCOMETER DEV NAME(LOC) 5N.3; GLUCOSE,POINT OF CARE 338 MG/DL (70-110)
[2020-10-24 00:31] VITALS: BP 149/75
[2020-10-24] MEDS: BENZONATATE 100 MG CAPSULE PO SCH ×3 (00:49→15:15)
[2020-10-24] MEDS: MORPHINE SULFATE 2 MG/ML SYRINGE IVP PRN ×3 (00:49→18:13)
[2020-10-24] MEDS: PIPERACILLIN/TAZO 3.375 GM/D5W 50 ML IV SCH (03:58)
[2020-10-24 04:24] VITALS: BP 157/81
[2020-10-24] MEDS: ACETAMINOPHEN 500 MG TABLET PO PRN ×2 (06:23→21:07)
[2020-10-24] MEDS: INSULIN LISPRO 100 UNITS/ML SQ PRN ×3 (06:24→22:01)
[2020-10-24 06:41] LABS: GLUCOMETER DEV NAME(LOC) 5S.1; GLUCOSE,POINT OF CARE 363 MG/DL (70-110)
[2020-10-24 07:52] LABS: CALCIUM, TOTAL 8.1 mg/dL (8.8-10.5); CREATININE 1.37 mg/dL (0.60-1.30); MAGNESIUM 2.2 mg/dL (1.80-2.40); POTASSIUM 4.4 mmol/L (3.5-5.1)
[2020-10-24 08:41] LABS: GLUCOMETER DEV NAME(LOC) 5S.2B; GLUCOSE,POINT OF CARE 288 MG/DL (70-110)
[2020-10-24] MEDS ORDERED: INSULIN GLARGINE,HUM.REC.ANLOG 100 UNITS/ML SQ SCH (09:00)
[2020-10-24 09:33] LABS: VANCOMYCIN,RANDOM 32.3 mcg/mL (25.0-50.0)
[2020-10-24] MEDS ORDERED: SODIUM CHLORIDE 0.9% 1,000 ML IV ONE (09:45)
[2020-10-24 10:25] VITALS: BP 120/61
[2020-10-24] MEDS: DEXAMETHASONE SOD PHOS 4 MG/ML VIAL IVP SCH (10:29)
[2020-10-24] MEDS: ASCORBIC ACID 500 MG TABLET PO SCH ×2 (10:37→21:06)
[2020-10-24] MEDS: FAMOTIDINE 20 MG TABLET PO SCH ×2 (10:37→21:06)
[2020-10-24] MEDS: CHOLECALCIFEROL (VIT D3) 1,000 UNITS [25 MCG] TABLET PO SCH (10:38)
[2020-10-24] MEDS: ENOXAPARIN SODIUM 40 MG/0.4 ML PF SYRINGE SQ SCH ×2 (10:38→21:06)
[2020-10-24] MEDS: AmLODIPine BESYLATE 10 MG TABLET PO SCH (10:38)
[2020-10-24] MEDS: VANCOMYCIN HCL 1.5 GM in DEXTROSE 5%-WATER 250 ML IV SCH (10:38)
[2020-10-24] MEDS: ZINC SULFATE 220 MG CAPSULE PO SCH ×2 (10:38→21:06)
[2020-10-24] MEDS ORDERED: VANCOMYCIN HCL 1 GM/D5% WATER 200 ML IV PRN ×2 (11:30→12:15)
[2020-10-24] MEDS: HydrALAZINE HCL 25 MG TABLET PO SCH ×2 (12:02→21:06)
[2020-10-24 13:13] VITALS: BP 141/76
[2020-10-24 15:17] VITALS: BP 103/77
[2020-10-24 16:19] LABS: GLUCOMETER DEV NAME(LOC) 5S.1; GLUCOSE,POINT OF CARE 323 MG/DL (70-110)
[2020-10-24] MEDS ORDERED: INSULIN REGULAR, HUMAN 100 UNITS/ML SQ ONE (18:45)
[2020-10-24] MEDS ORDERED: DEXTROSE 50%-WATER 25 GM/50 ML SYRINGE IVP PRN (18:45)
[2020-10-24 20:45] VITALS: BP 144/79
[2020-10-24] MEDS: INSULIN GLARGINE,HUM.REC.ANLOG 100 UNITS/ML SQ SCH (22:00)
[2020-10-25] VITALS (7 sets, daily range): BP systolic 100–145; BP diastolic 64–90
[2020-10-25] MEDS: BENZONATATE 100 MG CAPSULE PO SCH ×4 (00:40→17:38)
[2020-10-25] MEDS: MORPHINE SULFATE 2 MG/ML SYRINGE IVP PRN ×4 (00:40→19:45)
[2020-10-25 03:53] LABS: GLUCOMETER DEV NAME(LOC) 5S.2B; GLUCOSE,POINT OF CARE 346 MG/DL (70-110)
[2020-10-25 07:11] LABS: ANION GAP 3 mmol/L (8-16); C-REACTIVE PROTEIN QUANT 1.92 mg/dL (0.00-0.30); CALCIUM, TOTAL 8.2 mg/dL (8.8-10.5); CARBON DIOXIDE 29 mmol/L (22-29); CHLORIDE 101 mmol/L (98-107); CREATININE 1.15 mg/dL (0.60-1.30); GLOMERULAR FILTR. RATE CALC > 60 mL/min (>60); GLUCOSE,RANDOM 159 mg/dL (70-110); SODIUM SERUM 133 mmol/L (136-145); UREA NITROGEN, BLOOD 27 mg/dL (7-18); VANCOMYCIN,RANDOM 19.1 mcg/mL (25.0-50.0)
[2020-10-25 07:24] LABS: GLUCOMETER DEV NAME(LOC) 5N.3; GLUCOSE,POINT OF CARE 423 MG/DL (70-110)
[2020-10-25 07:25] LABS: GLUCOMETER DEV NAME(LOC) 5N.1B; GLUCOSE,POINT OF CARE 116 MG/DL (70-110)
[2020-10-25] MEDS: ZINC SULFATE 220 MG CAPSULE PO SCH ×2 (10:28→20:49)
[2020-10-25] MEDS: HydrALAZINE HCL 25 MG TABLET PO SCH ×2 (10:28→20:49)
[2020-10-25] MEDS: ENOXAPARIN SODIUM 40 MG/0.4 ML PF SYRINGE SQ SCH ×2 (10:29→20:49)
[2020-10-25] MEDS: ASCORBIC ACID 500 MG TABLET PO SCH ×2 (10:29→20:49)
[2020-10-25] MEDS: FAMOTIDINE 20 MG TABLET PO SCH ×2 (10:29→20:49)
[2020-10-25] MEDS: AmLODIPine BESYLATE 10 MG TABLET PO SCH (10:29)
[2020-10-25] MEDS: CHOLECALCIFEROL (VIT D3) 1,000 UNITS [25 MCG] TABLET PO SCH (10:29)
[2020-10-25] MEDS: DEXAMETHASONE SOD PHOS 4 MG/ML VIAL IVP SCH (10:33)
[2020-10-25] MEDS: INSULIN GLARGINE,HUM.REC.ANLOG 100 UNITS/ML SQ SCH ×2 (10:36→20:52)
[2020-10-25] MEDS: SODIUM CHLORIDE 1 GM TABLET PO SCH (10:38)
[2020-10-25] MEDS: ACETAMINOPHEN 500 MG TABLET PO PRN (10:45)
[2020-10-25] MEDS: INSULIN LISPRO 100 UNITS/ML SQ PRN ×3 (11:52→20:51)
[2020-10-25 18:43] LABS: GLUCOMETER DEV NAME(LOC) 5N.3; GLUCOSE,POINT OF CARE 186 MG/DL (70-110)
[2020-10-25 18:43] LABS: GLUCOMETER DEV NAME(LOC) 5S.1; GLUCOSE,POINT OF CARE 246 MG/DL (70-110)
[2020-10-26] MEDS: BENZONATATE 100 MG CAPSULE PO SCH ×4 (00:20→23:36)
[2020-10-26] MEDS: MORPHINE SULFATE 2 MG/ML SYRINGE IVP PRN ×3 (01:49→23:59)
[2020-10-26 03:39] VITALS: BP 142/70
[2020-10-26 05:07] LABS: GLUCOMETER DEV NAME(LOC) 5S.1; GLUCOSE,POINT OF CARE 242 MG/DL (70-110)
[2020-10-26] MEDS: INSULIN LISPRO 100 UNITS/ML SQ PRN ×2 (06:52→22:28)
[2020-10-26 07:22] LABS: GLUCOMETER DEV NAME(LOC) 5S.2B; GLUCOSE,POINT OF CARE 145 MG/DL (70-110)
[2020-10-26 08:05] VITALS: BP 145/79
[2020-10-26] MEDS: ENOXAPARIN SODIUM 40 MG/0.4 ML PF SYRINGE SQ SCH ×2 (08:27→21:09)
[2020-10-26] MEDS: DEXAMETHASONE SOD PHOS 4 MG/ML VIAL IVP SCH (08:28)
[2020-10-26] MEDS: FAMOTIDINE 20 MG TABLET PO SCH ×2 (08:28→21:09)
[2020-10-26] MEDS: SODIUM CHLORIDE 1 GM TABLET PO SCH (08:28)
[2020-10-26] MEDS: CHOLECALCIFEROL (VIT D3) 1,000 UNITS [25 MCG] TABLET PO SCH (08:28)
[2020-10-26] MEDS: ASCORBIC ACID 500 MG TABLET PO SCH ×2 (08:28→21:09)
[2020-10-26] MEDS: AmLODIPine BESYLATE 10 MG TABLET PO SCH (08:28)
[2020-10-26] MEDS: ZINC SULFATE 220 MG CAPSULE PO SCH ×2 (08:28→21:09)
[2020-10-26] MEDS: HydrALAZINE HCL 25 MG TABLET PO SCH ×2 (08:28→21:09)
[2020-10-26] MEDS: INSULIN GLARGINE,HUM.REC.ANLOG 100 UNITS/ML SQ SCH ×2 (08:32→22:31)
[2020-10-26 13:58] LABS: GLUCOMETER DEV NAME(LOC) 5S.2B; GLUCOSE,POINT OF CARE 122 MG/DL (70-110)
[2020-10-26 15:35] VITALS: BP 140/74
[2020-10-26 21:20] VITALS: BP 128/72
[2020-10-27 00:28] VITALS: BP 137/72
[2020-10-27 01:00] LABS: GLUCOMETER DEV NAME(LOC) 5S.2B; GLUCOSE,POINT OF CARE 441 MG/DL (70-110)
[2020-10-27 01:00] LABS: GLUCOMETER DEV NAME(LOC) 5S.2B; GLUCOSE,POINT OF CARE 354 MG/DL (70-110)
[2020-10-27 04:45] VITALS: BP 139/56
[2020-10-27] MEDS: MORPHINE SULFATE 2 MG/ML SYRINGE IVP PRN ×3 (05:07→21:43)
[2020-10-27] MEDS: INSULIN LISPRO 100 UNITS/ML SQ PRN ×4 (05:41→21:04)
[2020-10-27 07:50] VITALS: BP 113/66
[2020-10-27 07:57] LABS: ANION GAP 4 mmol/L (8-16); CALCIUM, TOTAL 7.8 mg/dL (8.8-10.5); CARBON DIOXIDE 29 mmol/L (22-29); CHLORIDE 99 mmol/L (98-107); CREATININE 1.19 mg/dL (0.60-1.30); GLOMERULAR FILTR. RATE CALC > 60 mL/min (>60); GLUCOSE,RANDOM 247 mg/dL (70-110); POTASSIUM 4.1 mmol/L (3.5-5.1); SODIUM SERUM 132 mmol/L (136-145); UREA NITROGEN, BLOOD 35 mg/dL (7-18)
[2020-10-27] MEDS: CHOLECALCIFEROL (VIT D3) 1,000 UNITS [25 MCG] TABLET PO SCH (09:20)
[2020-10-27] MEDS: BENZONATATE 100 MG CAPSULE PO SCH ×2 (09:20→17:05)
[2020-10-27] MEDS: DEXAMETHASONE SOD PHOS 4 MG/ML VIAL IVP SCH (09:20)
[2020-10-27] MEDS: ZINC SULFATE 220 MG CAPSULE PO SCH ×2 (09:20→20:49)
[2020-10-27] MEDS: ASCORBIC ACID 500 MG TABLET PO SCH ×2 (09:20→20:49)
[2020-10-27] MEDS: FAMOTIDINE 20 MG TABLET PO SCH ×2 (09:20→20:49)
[2020-10-27] MEDS: ENOXAPARIN SODIUM 40 MG/0.4 ML PF SYRINGE SQ SCH ×2 (09:21→20:49)
[2020-10-27] MEDS: HydrALAZINE HCL 25 MG TABLET PO SCH ×2 (09:21→20:49)
[2020-10-27] MEDS: AmLODIPine BESYLATE 10 MG TABLET PO SCH (09:21)
[2020-10-27] MEDS: SODIUM CHLORIDE 1 GM TABLET PO SCH ×2 (09:21→20:49)
[2020-10-27] MEDS: INSULIN GLARGINE,HUM.REC.ANLOG 100 UNITS/ML SQ SCH ×2 (09:22→20:52)
[2020-10-27 12:20] VITALS: BP 140/76
[2020-10-27 16:13] LABS: GLUCOMETER DEV NAME(LOC) 5S.2B; GLUCOSE,POINT OF CARE 269 MG/DL (70-110)
[2020-10-27 16:45] VITALS: BP 140/71
[2020-10-27 20:11] LABS: GLUCOMETER DEV NAME(LOC) 5S.2B; GLUCOSE,POINT OF CARE 249 MG/DL (70-110)
[2020-10-27 20:11] LABS: GLUCOMETER DEV NAME(LOC) 5N.3; GLUCOSE,POINT OF CARE 233 MG/DL (70-110)
[2020-10-27 20:55] VITALS: BP 138/75
[2020-10-28 00:35] VITALS: BP 149/82
[2020-10-28 02:19] LABS: GLUCOMETER DEV NAME(LOC) 5S.2B; GLUCOSE,POINT OF CARE 462 MG/DL (70-110)
[2020-10-28] MEDS: BENZONATATE 100 MG CAPSULE PO SCH ×3 (08:00→16:00)
[2020-10-28] MEDS: FAMOTIDINE 20 MG TABLET PO SCH ×2 (09:00→21:00)
[2020-10-28] MEDS: ENOXAPARIN SODIUM 40 MG/0.4 ML PF SYRINGE SQ SCH ×2 (09:00→21:42)
[2020-10-28] MEDS: SODIUM CHLORIDE 1 GM TABLET PO SCH ×2 (09:00→21:00)
[2020-10-28] MEDS: ASCORBIC ACID 500 MG TABLET PO SCH ×2 (09:00→21:00)
[2020-10-28] MEDS: ZINC SULFATE 220 MG CAPSULE PO SCH ×2 (09:00→21:00)
[2020-10-28] MEDS: INSULIN GLARGINE,HUM.REC.ANLOG 100 UNITS/ML SQ SCH ×2 (09:00→21:50)
[2020-10-28] MEDS: HydrALAZINE HCL 25 MG TABLET PO SCH ×2 (09:00→21:42)
[2020-10-28] MEDS: DEXAMETHASONE SOD PHOS 4 MG/ML VIAL IVP SCH (09:00)
[2020-10-28] MEDS: CHOLECALCIFEROL (VIT D3) 1,000 UNITS [25 MCG] TABLET PO SCH (09:00)
[2020-10-28] MEDS: AmLODIPine BESYLATE 10 MG TABLET PO SCH (09:00)
[2020-10-28 12:59] VITALS: BP 147/68
[2020-10-28 16:17] LABS: COVID AG,FIA SOURCE NASAL SWAB
[2020-10-28 16:31] VITALS: BP 140/63
[2020-10-28] MEDS: INSULIN LISPRO 100 UNITS/ML SQ PRN ×2 (18:23→21:50)
[2020-10-28] MEDS: MORPHINE SULFATE 2 MG/ML SYRINGE IVP PRN (18:40)
[2020-10-28 21:10] VITALS: BP 150/76
[2020-10-29 00:33] LABS: GLUCOMETER DEV NAME(LOC) 5N.3; GLUCOSE,POINT OF CARE 247 MG/DL (70-110)
[2020-10-29 00:52] LABS: GLUCOMETER DEV NAME(LOC) 5S.2B; GLUCOSE,POINT OF CARE 366 MG/DL (70-110)
[2020-10-29 01:10] VITALS: BP 139/77
[2020-10-29 04:55] VITALS: BP 142/69
[2020-10-29] MEDS: SODIUM CHLORIDE 1 GM TABLET PO SCH ×2 (09:10→20:42)
[2020-10-29] MEDS: BENZONATATE 100 MG CAPSULE PO SCH ×3 (09:11→16:00)
[2020-10-29] MEDS: ZINC SULFATE 220 MG CAPSULE PO SCH ×2 (09:11→20:43)
[2020-10-29] MEDS: CHOLECALCIFEROL (VIT D3) 1,000 UNITS [25 MCG] TABLET PO SCH (09:11)
[2020-10-29] MEDS: HydrALAZINE HCL 25 MG TABLET PO SCH ×2 (09:11→20:42)
[2020-10-29] MEDS: AmLODIPine BESYLATE 10 MG TABLET PO SCH (09:11)
[2020-10-29] MEDS: ASCORBIC ACID 500 MG TABLET PO SCH ×2 (09:11→20:42)
[2020-10-29] MEDS: FAMOTIDINE 20 MG TABLET PO SCH ×2 (09:14→20:43)
[2020-10-29] MEDS: INSULIN GLARGINE,HUM.REC.ANLOG 100 UNITS/ML SQ SCH ×2 (09:16→20:43)
[2020-10-29] MEDS: ENOXAPARIN SODIUM 40 MG/0.4 ML PF SYRINGE SQ SCH ×2 (09:17→20:43)
[2020-10-29 12:32] VITALS: BP 151/78
[2020-10-29] MEDS ORDERED: AMLO-258 PO (14:15)
[2020-10-29] MEDS ORDERED: BENZ-51 PO (14:17)
[2020-10-29] MEDS ORDERED: FAMO20 PO (14:17)
[2020-10-29] MEDS ORDERED: HYDR25TA84 PO (14:18)
[2020-10-29] MEDS ORDERED: INSLAN SQ (14:18)
[2020-10-29] MEDS ORDERED: NACL1 PO (14:19)
[2020-10-29 16:19] VITALS: BP 130/65
[2020-10-29 19:30] VITALS: BP 144/76
[2020-10-30 00:18] VITALS: BP 138/69
[2020-10-30 04:13] VITALS: BP 146/73
[2020-10-30] MEDS: CHOLECALCIFEROL (VIT D3) 1,000 UNITS [25 MCG] TABLET PO SCH (09:00)
[2020-10-30] MEDS: FAMOTIDINE 20 MG TABLET PO SCH (09:33)
[2020-10-30] MEDS: SODIUM CHLORIDE 1 GM TABLET PO SCH (09:33)
[2020-10-30] MEDS: AmLODIPine BESYLATE 10 MG TABLET PO SCH (09:33)
[2020-10-30] MEDS: HydrALAZINE HCL 25 MG TABLET PO SCH (09:33)
[2020-10-30] MEDS: BENZONATATE 100 MG CAPSULE PO SCH ×2 (09:33)
[2020-10-30] MEDS: ZINC SULFATE 220 MG CAPSULE PO SCH (09:33)
[2020-10-30] MEDS: ASCORBIC ACID 500 MG TABLET PO SCH (09:33)
[2020-10-30] MEDS: INSULIN GLARGINE,HUM.REC.ANLOG 100 UNITS/ML SQ SCH (09:38)
[2020-10-30] MEDS: ENOXAPARIN SODIUM 40 MG/0.4 ML PF SYRINGE SQ SCH (09:43)
[2020-10-30 11:31] VITALS: BP 147/75
[2020-10-30 12:41] LABS: GLUCOMETER DEV NAME(LOC) 5N.3; GLUCOSE,POINT OF CARE 101 MG/DL (70-110)
[2020-10-30 12:41] LABS: GLUCOMETER DEV NAME(LOC) 5N.3; GLUCOSE,POINT OF CARE 65 MG/DL (70-110)
[2020-10-30 15:59] VITALS: BP 144/78
== END 2020-10-30 16:30 | DRG 177 ==
LOC: EMS 12:29 → ICUN 15:16 → 5N 10-18 13:22
PROVIDERS: ADMIT Internal Medicine; ATTEND Internal Medicine
PROC: XW033E5 Introduction of Remdesivir Anti-infective into Peripheral Vein, Percutaneous Approach, New Technology Group 5 (ICD-10-PCS; principal; 2020-10-17)
PROC: 3E0234Z Introduction of Serum, Toxoid and Vaccine into Muscle, Percutaneous Approach (ICD-10-PCS; 2020-10-18)
PROC: 3E02340 Introduction of Influenza Vaccine into Muscle, Percutaneous Approach (ICD-10-PCS; 2020-10-18)
DX: U07.1 COVID-19 (principal); J96.01 Acute respiratory failure with hypoxia; J12.89 Other viral pneumonia; N17.9 Acute kidney failure, unspecified; N18.4 Chronic kidney disease, stage 4 (severe); N39.0 Urinary tract infection, site not specified; E87.2 Acidosis; E87.1 Hypo-osmolality and hyponatremia; E11.65 Type 2 diabetes mellitus with hyperglycemia; E87.5 Hyperkalemia; D64.9 Anemia, unspecified; F20.9 Schizophrenia, unspecified; E66.01 Morbid (severe) obesity due to excess calories; E11.22 Type 2 diabetes mellitus with diabetic chronic kidney disease; E78.5 Hyperlipidemia, unspecified; F31.9 Bipolar disorder, unspecified; G89.29 Other chronic pain; G40.909 Epilepsy, unspecified, not intractable, without status epilepticus; I12.9 Hypertensive chronic kidney disease with stage 1 through stage 4 chronic kidney disease, or unspecified chronic kidney disease; R00.0 Tachycardia, unspecified; R00.1 Bradycardia, unspecified; F15.90 Other stimulant use, unspecified, uncomplicated; R74.01 Elevation of levels of liver transaminase levels; I45.4 Nonspecific intraventricular block; Z79.4 Long term (current) use of insulin; Z68.29 Body mass index [BMI] 29.0-29.9, adult; Z79.899 Other long term (current) drug therapy; Z82.49 Family history of ischemic heart disease and other diseases of the circulatory system; Z83.3 Family history of diabetes mellitus; Z86.15 Personal history of latent tuberculosis infection; Z87.11 Personal history of peptic ulcer disease; Z87.891 Personal history of nicotine dependence; Z23 Encounter for immunization; Z88.8 Allergy status to other drugs, medicaments and biological substances; Z91.19 Patient's noncompliance with other medical treatment and regimen; Z79.82 Long term (current) use of aspirin
CPT/HCPCS: 36600; 51702; 71250; 72192; 74150; 76770; 80074; 82728; 82805; 83036; 83605; 83615; 83735; 84100; 84145; 85007; 85379; 86140; 87040; 87081; 87086; 87426; 87804; 93005; 93306; 99291; G0378; J0610; J1100; J1644; J1650; J1815; J1940; J2270; J2543; J3370; J3490; J7030; J7050; J7060; 36415-L1; 36415-TC; 71045-TC; 80202-TC; J7613; U0003

== ENCOUNTER 2021-05-03 16:21 | Emergency (ER) | payer MEDICARE, OTHER ==
[~2021-05-03] VITALS: Ht 182.9 cm; Wt 106.8 kg
[~2021-05-03 16:21] MED LIST changes: +AMLO-258 PO; -ASPI-728 PO; +CEPH500C3 PO; -GABA-1201 PO; +INSLAN SQ; -LISI-661 PO
[2021-05-03] MEDS ORDERED: FAMOTIDINE 10 MG/ML 2 ML VIAL IVP ONE (16:45)
[2021-05-03] MEDS ORDERED: DiphenhydrAMINE HCL 50 MG/ML VIAL IVP ONE (16:45)
[2021-05-03] MEDS ORDERED: MethylPREDNISolone SOD SUCC 125 MG/2 ML VIAL IVP ONE (16:45)
[2021-05-03 21:00] VITALS: BP 132/78
== END 2021-05-03 21:56 | disposition home or self-care (01) ==
LOC: EMS 16:21
DX: T78.3XXA Angioneurotic edema, initial encounter (principal); E11.9 Type 2 diabetes mellitus without complications; I10 Essential (primary) hypertension; F31.9 Bipolar disorder, unspecified; F20.9 Schizophrenia, unspecified; F17.200 Nicotine dependence, unspecified, uncomplicated; F19.90 Other psychoactive substance use, unspecified, uncomplicated; Z88.8 Allergy status to other drugs, medicaments and biological substances; Z79.4 Long term (current) use of insulin
CPT/HCPCS: 82962; 96374; 96375; 99291; J1200; J2930; J3490

== ENCOUNTER 2021-06-09 18:08 | Emergency (ER) | payer MEDICARE, OTHER ==
[~2021-06-09] VITALS: Ht 175.3 cm; Wt 72.7 kg
[2021-06-09] MEDS ORDERED: KETOROLAC TROMETHAMINE 30 MG/ML VIAL IM ONE (21:00)
[2021-06-09 22:00] VITALS: BP 141/79
== END 2021-06-09 22:20 | disposition home or self-care (01) ==
LOC: EMS 18:11
DX: G62.9 Polyneuropathy, unspecified (principal); E11.9 Type 2 diabetes mellitus without complications; F31.9 Bipolar disorder, unspecified; I10 Essential (primary) hypertension; F20.9 Schizophrenia, unspecified; F17.200 Nicotine dependence, unspecified, uncomplicated; F12.90 Cannabis use, unspecified, uncomplicated; Z88.8 Allergy status to other drugs, medicaments and biological substances; Z91.018 Allergy to other foods; Z79.4 Long term (current) use of insulin
CPT/HCPCS: 96372; 99283; J1885

== ENCOUNTER 2021-08-05 22:10 | Emergency (ER) | payer MEDICARE, OTHER ==
[~2021-08-05] VITALS: Ht 182.9 cm; Wt 110.0 kg
[2021-08-06 00:20] LABS: BASOPHILS % (AUTO) 1.1 % (0.0-2.0); HEMATOCRIT 27.4 % (41-53); HEMOGLOBIN 9.1 g/dL (13.5-17.5); LYMPHOCYTES # (AUTO) 1.9 K/uL (1.0-4.8); LYMPHOCYTES % (AUTO) 19.4 % (22.0-44.0); MEAN CORPUSCULAR HEMOGLOBIN 28.9 pg (26.0-34.0); MEAN CORPUSCULAR HGB CONC 33.2 G/dL (31.0-37.0); MEAN CORPUSCULAR VOLUME 87 fL (80-100); MONOCYTES # (AUTO) 1.5 K/uL (0.1-1.0); MONOCYTES % (AUTO) 15.5 % (2.0-9.0); NEUTROPHILS # (AUTO) 5.5 K/uL (1.8-7.7); PLATELET COUNT (AUTO) 261 K/uL (150-450); RED BLOOD CELL COUNT(AUTO) 3.15 MIL/uL (4.50-5.90); RED CELL DISTRIBUTION WIDTH 13.9 % (11.5-14.5)
[2021-08-06 00:27] LABS: CALCIUM, TOTAL 9.1 mg/dL (8.8-10.5); CREATININE 1.46 mg/dL (0.60-1.30); POTASSIUM 4.6 mmol/L (3.5-5.1)
[2021-08-06 00:32] LABS: PROTHROMBIN TIME 10.3 SEC (9.4-11.6)
[2021-08-06 00:33] LABS: BILIRUBIN,TOTAL 0.3 mg/dL (0.1-1.0); TOTAL PROTEIN, SERUM 8.2 g/dL (6.4-8.2)
[2021-08-06 01:10] LABS: D-DIMER 1.43 mg/L FEU (0.00-0.50)
[2021-08-06] MEDS ORDERED: SODIUM CHLORIDE 0.9% 100 ML ONE (02:03)
[2021-08-06] MEDS ORDERED: IOHEXOL 350 MG/ML 100 ML VIAL ONE (02:04)
[2021-08-06 03:35] LABS: APPEARANCE,URINE CLEAR (CLEAR); BILIRUBIN,URINE NEGATIVE (NEGATIVE); GLUCOSE, URINE (UA) 250 mg/dL (NEGATIVE); KETONES,URINE NEGATIVE (NEGATIVE); LEUKOCYTE ESTERASE ,URINE NEGATIVE (NEGATIVE); NITRATE,URINE NEGATIVE (NEGATIVE); OCCULT BLOOD,URINE LARGE (NEGATIVE); PH,URINE 6.5 (5.0-8.0); PROTEIN,URINE SEE CONFIRM (NEGATIVE); UROBILINOGEN,URINE 0.2 mg/dL (<=1.0)
[2021-08-06 03:40] LABS: BACTERIA,URINE Rare /HPF (None Seen); SQUAMOUS EPITHELIAL CELL,UR None Seen /LPF (None Seen); SULFOSALICYLIC ACID,URINE 4+ (Negative); WBC,URINE 0-2 /HPF (0-5)
[2021-08-06] MEDS ORDERED: LOSARTAN POTASSIUM 25 MG TABLET PO ONE (04:45)
[2021-08-06 05:05] VITALS: BP 165/104
== END 2021-08-06 05:34 | disposition home or self-care (01) ==
LOC: EMS 22:15
DX: R06.02 Shortness of breath (principal); M79.89 Other specified soft tissue disorders; R05.9 Cough, unspecified; I10 Essential (primary) hypertension; Z88.8 Allergy status to other drugs, medicaments and biological substances; Z79.84 Long term (current) use of oral hypoglycemic drugs; Z79.899 Other long term (current) drug therapy; Z20.822 Contact with and (suspected) exposure to COVID-19
CPT/HCPCS: 36415; 71045; 71275; 80053; 81001; 83880; 84484; 85025; 85379; 85610; 85730; 93005; 99285; J7050; Q9967; U0003; 81002